=== PATIENT | male | born 1965 | race Caucasian/White ===

== ENCOUNTER 2017-01-02 12:40 | Emergency (ER) | payer MEDICARE, OTHER ==
[~2017-01-02] VITALS: Ht 172.7 cm; Wt 103.6 kg
[~2017-01-02 12:40] MED LIST: ADDE20 PO; BACT800T5 PO; BUSP15TA PO; CLIN150 PO; HIBI4LIQ TOPICAL; LAMO25 PO; NEUR100C PO; PROZ40CA PO; XANA2TAB2 PO
[2017-01-02 12:57] VITALS: BP 129/97; PULSE 81; RESP 16; TEMP 98.5; O2SAT 95
[2017-01-02 13:41] VITALS: BP 142/93; PULSE 74; RESP 18; O2SAT 98
[2017-01-02 13:57] VITALS: O2SAT 97
--- NOTE | 2017-01-02 13:59 | PD ---
HPI Chief Complaint: Chest Pain Time Seen by Provider: 13:39 Travel History International Travel<30 days: No Contact w/Intl Traveler<30days: No Traveled to known affect area: No History of Present Illness HPI 51-year-old male complains of chest pain coughing congestion swollen feet and redness of the feet. Patient states that he has history of recurrent chronic swelling of the feet and lower extremity for the past 3 months. Patient started having dry cough for the past 2 days. Patient states that he started having intermittent left-sided chest pressure for the past 2 days also. Patient states that the chest pains pressure pain localized to left chest. Patient states that the pain usually lasts about 510 minutes and resolved completely. Patient states the pain is not associated with exertion. Patient denies nausea vomiting diaphoresis with the pain. Patient denies any palpitation. Patient noticed increasing redness swelling on bilateral feet for the past 2 days also. Patient denies any fever chills. Patient denies any recent injury. Patient has history of recurrent cellulitis to lower extremity. Patient denies states that he has history of MD in the past. Patient states that he had stress test done 5 years ago. Patient does not have a local physician or dross puller for follow-up. Patient denies any history hypertension, diabetes, dyslipidemia. PFSH Past Medical History Hx Anticoagulant Therapy: No Arthritis: Yes Bipolar Disorder: Yes Anxiety: Yes Depression: Yes Cardiovascular Problems: Yes (MD x 1) Chemotherapy: No Cerebrovascular Accident: No Diabetes: No Diminished Hearing: No Gastrointestinal Disorders: No Hepatitis: Yes (HEP C) Hypertension: No Immune Disorder: Yes (HEPATITIS C) Implanted Vascular Access Dvce: No Medical other: Yes (ARTHRITIS) Musculoskeletal: Yes (r rotator cuff repair, l thumb plate/screws) Neurologic: Yes Psychiatric: Yes Respiratory: Yes (COPD) Immunizations Current: Yes Myocardial Infarction: Yes Past Surgical History Abdominal Surgery: No Cardiac Surgery: No Ear Surgery: No Endocrine Surgery: No Eye Surgery: No Genitourinary Surgery: No Gynecologic Surgery: No Hysterectomy: No Joint Replacement: No Neurologic Surgery: Yes (LUMBAR LAMINECTOMY X 2) Oral Surgery: No Thoracic Surgery: Yes Other Surgery: Yes (BACK SURGERY 2000; RIGHT SHOULDER ROTATOR CUFF 2001) Social History Alcohol Use: No Tobacco Use: Yes (1ppd) Substance Use: No Allergies-Medications (Allergen,Severity, Reaction): Coded Allergies: Geodon (Verified Allergy, Severe, "LOCK JAW", 01/02/17) Haldol (Verified Allergy, Severe, "LOCK JAW", 01/02/17) Penicillin (Verified Allergy, Severe, RASH, 01/02/17) Toradol (Verified Allergy, Severe, RASH, 01/02/17) *MDRO Multi-Drug Resistant Organism (Verified Adverse Reaction, Unknown, ) 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 Space doses at least 4 to 6 hours if more than once/day dosing. Prozac (Fluoxetine HCl) 40 Mg Cap 40 Cap PO DAILY Xanax (Alprazolam) 2 Mg Tab 1 Mg PO BID PRN Lamictal (Lamotrigine) 25 Mg Tab 25 Mg PO BID Neurontin (Gabapentin) 100 Mg Cap 500 Mg PO TID Buspirone (Buspirone HCl) 15 Mg Tab 15 Mg PO DAILY Review of Systems General / Constitutional: No: Fever Eyes: No: Visual changes HENT: No: Headaches Cardiovascular: Positive: Chest Pain or Discomfort Respiratory: No: Shortness of Breath Gastrointestinal: No: Abdominal Pain Genitourinary: No: Dysuria Musculoskeletal: Positive: Edema, No: Pain Skin: No Rash Neurologic: No: Weakness Psychiatric: No: Depression Endocrine: No: Polydipsia Hematologic/Lymphatic: No: Easy Bruising Physical Exam Narrative GENERAL: Well-nourished, well-developed patient. SKIN: Warm and dry. HEAD: Normocephalic. EYES: No scleral icterus. No injection or drainage. NECK: Supple, trachea midline. No JVD or lymphadenopathy. CARDIOVASCULAR: Regular rate and rhythm without murmurs, gallops, or rubs. RESPIRATORY: Breath sounds equal bilaterally. No accessory muscle use. GASTROINTESTINAL: Abdomen soft, non-tender, nondistended. MUSCULOSKELETAL: Patient had +2 pitting edema bilateral lower extremity. Patient has redness on the dorsum aspect of the feet bilaterally. No induration noted. BACK: Nontender without obvious deformity. No CVA tenderness. Neurologic exam normal. Data Data Last Documented VS Vital Signs Date Time Temp Pulse Resp B/P Pulse Ox O2 Delivery O2 Flow Rate FiO2 01/02/17 13:57 97 Room Air 01/02/17 13:41 74 18 142/93 01/02/17 12:57 98.5 Orders Complete Blood Count With Diff (01/02/17 13:50) Comprehensive Metabolic Panel (01/02/17 13:50) Creatine Kinase (Cpk) (01/02/17 13:50) Troponin I (01/02/17 13:50) B-Type Natriuretic Peptide (01/02/17 13:50) Prothrombin Time / Inr (Pt) (01/02/17 13:50) Act Partial Throm Time (Ptt) (01/02/17 13:50) Urinalysis - C+S If Indicated (01/02/17 13:50) Thyroid Stimulating Hormone (01/02/17 13:50) Chest, Single Ap (01/02/17 13:50) Iv Access Insert/Monitor (01/02/17 13:50) Ecg Monitoring (01/02/17 13:50) Oximetry (01/02/17 13:50) Vancomycin Inj (Vancomycin Inj) (01/02/17 14:00) Electrocardiogram (01/02/17 13:02) Labs Laboratory Tests Test 01/02/17 01/02/17 14:18 14:40 White Blood Count 8.0 TH/MM3 Red Blood Count 4.31 MIL/MM3 Hemoglobin 12.6 GM/DL Hematocrit 37.7 % Mean Corpuscular Volume 87.3 FL Mean Corpuscular Hemoglobin 29.2 PG Mean Corpuscular Hemoglobin 33.4 % Concent Red Cell Distribution Width 13.5 % Platelet Count 293 TH/MM3 Mean Platelet Volume 8.3 FL Neutrophils (%) (Auto) 69.0 % Lymphocytes (%) (Auto) 19.7 % Monocytes (%) (Auto) 5.2 % Eosinophils (%) (Auto) 0.7 % Basophils (%) (Auto) 5.4 % Neutrophils # (Auto) 5.5 TH/MM3 Lymphocytes # (Auto) 1.6 TH/MM3 Monocytes # (Auto) 0.4 TH/MM3 Eosinophils # (Auto) 0.1 TH/MM3 Basophils # (Auto) 0.4 TH/MM3 CBC Comment DIFF FINAL Differential Comment Prothrombin Time 10.0 SEC Prothromb Time International 0.9 RATIO Ratio Activated Partial 26.7 SEC Thromboplast Time Sodium Level 141 MEQ/L Potassium Level 4.6 MEQ/L Chloride Level 105 MEQ/L Carbon Dioxide Level 29.4 MEQ/L Anion Gap 7 MEQ/L Blood Urea Nitrogen 12 MG/DL Creatinine 1.10 MG/DL Estimat Glomerular Filtration 70 ML/MIN Rate Random Glucose 130 MG/DL Calcium Level 8.6 MG/DL Total Bilirubin 0.2 MG/DL Aspartate Amino Transf 14 U/L (AST/SGOT) Alanine Aminotransferase 27 U/L (ALT/SGPT) Alkaline Phosphatase 113 U/L Total Creatine Kinase 64 U/L Troponin I LESS THAN 0.02 NG/ML B-Type Natriuretic Peptide 22 PG/ML Total Protein 7.5 GM/DL Albumin 3.7 GM/DL Thyroid Stimulating Hormone 1.430 uIU/ML 3rd Gen Urine Color YELLOW Urine Turbidity CLEAR Urine pH 7.0 Urine Specific [place] 1.009 Urine Protein NEG mg/dL Urine Glucose (UA) NEG mg/dL Urine Ketones NEG mg/dL Urine Occult Blood NEG Urine Nitrite NEG Urine Bilirubin NEG Urine Leukocyte Esterase NEG Urine RBC 0-2 /hpf Urine WBC 0-2 /hpf Urine Squamous Epithelial 0-5 /hpf Cells Urine Bacteria NONE /hpf Microscopic Urinalysis Comment CULT NOT INDICATED MDM Medical Decision Making Medical Screen Exam Complete: Yes Emergency Medical Condition: Yes Interpretation(s) 15 10 PM. Last Impressions Chest X-Ray 01/02/17 1350 Signed Impressions: Service Date/Time: Monday, January 02, 2017 13:57 - CONCLUSION: No acute disease. Kaushik Orellana MD 15 10 PM. CMP within normal limit. Cardiac enzymes are normal. BNP 22. UA is negative. 1543 PM. CBC WBC 8.0. Normal differential. Differential Diagnosis Differential diagnosis including musculoskeletal, angina, MD, PE, pneumothorax, dependent edema, cellulitis, DVT. Narrative Course 51-year-old male with chest pain, coughing congestion, bilateral low extremity edema and redness. Vancomycin 1 g IV given. Patient was advised to be admitted to the chest pain center for chest pain. Patient refuses admission. Patient wants to follow-up with his local physician for that. Diagnosis Primary Impression: Cellulitis of both feet Additional Impression: Dependent edema Patient Instructions: General Instructions Additional Instructions: Take medications as directed. Keep legs elevated. Return in 2 days or recheck. Return sooner if progressively worse. Med/Other Pt SpecificInfo: Prescription(s) given Scripts Potassium Chloride ER (K-Tab)10 Meq Tab1 Tab PO DAILY #7 TAB Ref 0 Prov:Maycol Mayfield MD 01/02/17 Furosemide (Lasix)20 Mg Tab20 Mg PO DAILY #7 TAB Ref 0 Prov:Maycol Mayfield MD 01/02/17 Clindamycin 150 Mg Cap2 Tab PO Q6H #80 CAP Prov:Maycol Mayfield MD 01/02/17 Sulfamethoxazole-Trimethoprim (Bactrim DS)800-160 Mg Tab1 Tab PO BID #20 TAB Prov:Maycol Mayfield MD 01/02/17 Disposition: 01 DISCHARGE HOME Condition: Stable Maycol Mayfield MD Jan 02, 2017 13:59
[2017-01-02] MEDS ORDERED: VANCOMYCIN INJ 1,000 MG in SODIUM CHLOR 0.9% 250 ML INJ 250 ML IV ONE (14:00)
--- NOTE | 2017-01-02 14:29 | RADHPO ---
EXAM DATE/TIME: 01/02/2017 13:57 [facility] COMPARISON: CHEST SINGLE AP, June 13, 2016, 7:04. INDICATIONS : Chest pain. MEDICAL HISTORY : Myocardial infarction. SURGICAL HISTORY : None. ENCOUNTER: Initial ACUITY: 3 days PAIN SCORE: 4/10 LOCATION: Right middle chest FINDINGS: A single view of the chest demonstrates the lungs to be symmetrically aerated without evidence of mas s, infiltrate or effusion. The cardiomediastinal contours are unremarkable. Osseous structures are intact. There are overlying electrocardiogram leads. CONCLUSION: No acute disease. Kaushik Orellana MD on January 02, 2017 at 14:27 Board Certified Radiologist. This report was verified electronically.
[2017-01-02 14:40] LABS: CHLORIDE 105 MEQ/L (98-107); POTASSIUM 4.6 MEQ/L (3.5-5.1); SODIUM (NA) 141 MEQ/L (136-145)
[2017-01-02 14:44] LABS: ANION GAP 7 MEQ/L (5-15); APTT (PATIENT) 26.7 SEC (24.3-30.1); BICARBONATE 29.4 MEQ/L (21.0-32.0); BLOOD UREA NITROGEN 12 MG/DL (7-18); INTERNATIONAL NORMALIZED RATIO 0.9 RATIO
[2017-01-02 14:47] LABS: ALT (GPT) 27 U/L (12-78); AST (GOT) 14 U/L (15-37); GLOMERULAR FILTRATION RATE 70 ML/MIN (>89)
[2017-01-02 14:48] LABS: TOTAL BILIRUBIN ADULT 0.2 MG/DL (0.2-1.0)
[2017-01-02 14:50] LABS: ALKALINE PHOSPHATASE 113 U/L (45-117)
[2017-01-02 14:57] LABS: CREATINE KINASE 64 U/L (39-308)
[2017-01-02 14:59] LABS: BLOOD, URINE NEG (NEG); GLUCOSE,URINE NEG (NEG); KETONE, URINE NEG (NEG); NITRITE,URINE NEG (NEG)
[2017-01-02 15:04] LABS: URINE COLOR YELLOW (YELLW/STRAW)
[2017-01-02 15:05] LABS: COMMENT (UR) CULT NOT INDICATED; CULTURE IF INDICATED CULT NOT INDICATED; RBC, URINE 0-2 /hpf (0-3); SQUAMOUS EPITHELIAL CELL URINE 0-5 /hpf (0-5); WBC, URINE 0-2 /hpf (0-5)
[2017-01-02 15:30] LABS: AUTOMATED NEUTROPHIL # 5.5 TH/MM3 (1.8-7.7); BASOPHIL # 0.4 TH/MM3 (0-0.2); BASOPHIL % 5.4 % (0.0-2.0); EOSINOPHIL # 0.1 TH/MM3 (0-0.4); EOSINOPHIL % 0.7 % (0.0-4.0); HEMATOCRIT 37.7 % (39.0-51.0); LYMPH % 19.7 % (9.0-44.0); LYMPHOCYTE # 1.6 TH/MM3 (1.0-4.8); MEAN CELL VOLUME 87.3 FL (80.0-100.0); MEAN CORPUSCULAR HEMOGLOBIN 29.2 PG (27.0-34.0); MEAN CORPUSCULAR HGB CONC 33.4 % (32.0-36.0); MONO % 5.2 % (0.0-8.0); PLATELET COUNT 293 TH/MM3 (150-450); RED BLOOD COUNT 4.31 MIL/MM3 (4.50-5.90); RED CELL DISTRIBUTION WIDTH 13.5 % (11.6-17.2)
[2017-01-02 15:34] LABS: HEMO FLAGS DIFF FINAL
[2017-01-02] MEDS ORDERED: FURO1TAB62 PO (15:51)
[2017-01-02] MEDS ORDERED: CLIN1CAP5 PO (15:51)
[2017-01-02] MEDS ORDERED: BACT800T5 PO (15:51)
[2017-01-02] MEDS ORDERED: K-TA10TA PO (15:51)
[2017-01-02 16:48] VITALS: BP 132/84
--- NOTE | 2017-01-03 11:27 | EKG ---
Date Performed: 01/02/2017 Time Performed: 13:02:18 PTAGE: 51 years EKG: Sinus rhythm QT interval slightly shorter since the prior tracing. Borderline ECG PREVIOUS TRACING : 06/13/2016 07.07 DOCTOR: Topher Loera Interpretating Date/Time 01/03/2017 11:26:24
== END 2017-01-02 17:02 | disposition home or self-care (01) ==
LOC: PHED 12:40
DX: L03.116 Cellulitis of left lower limb (principal); L03.115 Cellulitis of right lower limb; R60.0 Localized edema; R94.31 Abnormal electrocardiogram [ECG] [EKG]; R07.89 Other chest pain; R05 Cough; F17.200 Nicotine dependence, unspecified, uncomplicated; I25.2 Old myocardial infarction; Z87.39 Personal history of other diseases of the musculoskeletal system and connective tissue; Z86.79 Personal history of other diseases of the circulatory system; Z86.19 Personal history of other infectious and parasitic diseases; Z86.69 Personal history of other diseases of the nervous system and sense organs; Z87.09 Personal history of other diseases of the respiratory system; Z86.59 Personal history of other mental and behavioral disorders
CPT/HCPCS: 71010; 80053; 81001; 82550; 83880; 84443; 84484; 85025; 85610; 85730; 93005; 96365; 99285; J3370; J7050

== ENCOUNTER 2017-02-17 13:18 | Emergency (ER) | payer MEDICARE, OTHER ==
[~2017-02-17] VITALS: Ht 167.6 cm; Wt 101.1 kg
[~2017-02-17 13:18] MED LIST changes: -CLIN150 PO; +CLIN1CAP5 PO; +FURO1TAB62 PO; -HIBI4LIQ TOPICAL; +K-TA10TA PO
[2017-02-17 13:30] VITALS: BP 113/70; PULSE 81; RESP 16; TEMP 98.5; O2SAT 97
[2017-02-17] MEDS ORDERED: CLIN1CAP6 PO (14:22)
[2017-02-17] MEDS ORDERED: HYDR25TA5 PO (14:22)
--- NOTE | 2017-02-17 14:22 | PD ---
HPI Chief Complaint: Edema Time Seen by Provider: 14:12 Travel History International Travel<30 days: No Contact w/Intl Traveler<30days: No Traveled to known affect area: No History of Present Illness HPI 51-year-old male here with complaint of swelling and pain to the legs. Patient has noticed 3 days of progressively worsening bilateral lower extremity redness and swelling. History of recurrent lower extremity cellulitis. Chronically swollen lower extremities most prominent over the last 3 days. No history of DVT, PE. No fevers or chills. He has not noticed any streaking erythema. PFSH Past Medical History Hx Anticoagulant Therapy: No Arthritis: Yes Bipolar Disorder: Yes Anxiety: Yes Depression: Yes Cardiovascular Problems: Yes ([place] x 1) Chemotherapy: No Cerebrovascular Accident: No Diabetes: No Diminished Hearing: No Gastrointestinal Disorders: No Hepatitis: Yes (HEP C) Hypertension: No Immune Disorder: Yes (HEPATITIS C) Implanted Vascular Access Dvce: No Medical other: Yes (ARTHRITIS) Musculoskeletal: Yes (r rotator cuff repair, l thumb plate/screws) Neurologic: Yes Psychiatric: Yes Respiratory: Yes (COPD) Immunizations Current: Yes Myocardial Infarction: Yes Tetanus Vaccination: < 5 Years Influenza Vaccination: No Past Surgical History Abdominal Surgery: No Cardiac Surgery: No Ear Surgery: No Endocrine Surgery: No Eye Surgery: No Genitourinary Surgery: No Gynecologic Surgery: No Hysterectomy: No Joint Replacement: No Neurologic Surgery: Yes (LUMBAR LAMINECTOMY X 2) Oral Surgery: No Thoracic Surgery: Yes Other Surgery: Yes (BACK SURGERY 2000; RIGHT SHOULDER ROTATOR CUFF 2001) Social History Alcohol Use: No Tobacco Use: Yes (1ppd) Substance Use: No Allergies-Medications (Allergen,Severity, Reaction): Coded Allergies: Geodon (Verified Allergy, Severe, "LOCK JAW", 02/17/17) Haldol (Verified Allergy, Severe, "LOCK JAW", 02/17/17) Penicillin (Verified Allergy, Severe, RASH, 02/17/17) Toradol (Verified Allergy, Severe, RASH, 02/17/17) *MDRO Multi-Drug Resistant Organism (Verified Adverse Reaction, Unknown, ) 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 Space doses at least 4 to 6 hours if more than once/day dosing. Prozac (Fluoxetine HCl) 40 Mg Cap 40 Cap PO DAILY Xanax (Alprazolam) 2 Mg Tab 1 Mg PO BID PRN Lamictal (Lamotrigine) 25 Mg Tab 25 Mg PO BID Neurontin (Gabapentin) 100 Mg Cap 500 Mg PO TID Buspirone (Buspirone HCl) 15 Mg Tab 15 Mg PO DAILY Review of Systems Except as stated in HPI: all other systems reviewed are Neg Physical Exam Narrative GENERAL: Well-appearing male in no acute distress SKIN: Focused skin assessment warm/dry. HEAD: Normocephalic. EYES: No scleral icterus. No injection or drainage. ENT: Mucous membranes pink and moist. NECK: Supple CARDIOVASCULAR: Regular rate and rhythm. RESPIRATORY: No accessory muscle use. MUSCULOSKELETAL: Erythema and minimal warmth of the feet and lower calves. No palpable cords. 5 out of 5 strength. 2+ BLE edema in the affected area. Distal sensation and pulses intact NEUROLOGICAL: Awake and alert. Normal speech. PSYCHIATRIC: Appropriate mood and affect; insight and judgment normal. Data Data Last Documented VS Vital Signs Date Time Temp Pulse Resp B/P Pulse Ox O2 Delivery O2 Flow Rate FiO2 02/17/17 13:30 98.5 81 16 113/70 97 MDM Medical Decision Making Medical Screen Exam Complete: Yes Emergency Medical Condition: Yes Medical Record Reviewed: Yes Differential Diagnosis 51-year-old male here with complaint of redness and swelling to the bilateral legs. Exam is consistent with early cellulitis. No open wounds to suggest ulcer, exam is not consistent with necrotizing fasciitis. Given the bilaterality my suspicion for DVT is exceedingly low. Narrative Course Patient will be treated with antibiotics and diuretics for home. Diagnosis Primary Impression: Bilateral lower leg cellulitis Referrals: Primary Care Physician 1 week Additional Instructions: Antibiotics as prescribed. Diuretics to help with fluid. Elevate the legs as much as possible. Follow-up with primary care provider as instructed. Med/Other Pt SpecificInfo: Prescription(s) given Scripts Hydrochlorothiazide 25 Mg Tab25 Mg PO DAILY 7 Days Ref 0 Prov:Jamila Castro MD 02/17/17 Clindamycin 300 Mg Qmr644 Mg PO TID 7 Days Ref 0 Prov:Jamila Castro MD 02/17/17 Disposition: 01 DISCHARGE HOME Condition: Stable Jamila Castro MD Feb 17, 2017 14:22
== END 2017-02-17 14:36 | disposition home or self-care (01) ==
LOC: PHEFT 13:18
DX: L03.115 Cellulitis of right lower limb (principal); L03.116 Cellulitis of left lower limb; M19.90 Unspecified osteoarthritis, unspecified site
CPT/HCPCS: 99283

== ENCOUNTER 2017-09-10 15:34 | Emergency (ER) | payer MEDICARE, OTHER ==
[~2017-09-10] VITALS: Ht 172.7 cm; Wt 101.0 kg
[~2017-09-10 15:34] MED LIST changes: -ADDE20 PO; -BACT800T5 PO; -CLIN1CAP5 PO; +CLIN1CAP6 PO; -FURO1TAB62 PO; +HYDR25TA5 PO; -K-TA10TA PO
[2017-09-10 15:38] VITALS: BP 123/68; PULSE 76; RESP 18; TEMP 98.3; O2SAT 96
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
[2017-09-10] MEDS ORDERED: ROBA500T PO (17:54)
== END 2017-09-10 18:03 | disposition home or self-care (01) ==
LOC: PHEFT 15:34
DX: S13.4XXA Sprain of ligaments of cervical spine, initial encounter (principal); M62.838 Other muscle spasm; M54.12 Radiculopathy, cervical region; V49.9XXA Car occupant (driver) (passenger) injured in unspecified traffic accident, initial encounter; Y92.415 Exit ramp or entrance ramp of street or highway as the place of occurrence of the external cause
CPT/HCPCS: 70450; 72125

== ENCOUNTER 2017-11-28 10:58 | Emergency (ER) | payer MEDICARE, OTHER ==
[~2017-11-28] VITALS: Ht 172.7 cm; Wt 99.7 kg
[~2017-11-28 10:58] MED LIST changes: -CLIN1CAP6 PO; +ROBA500T PO
[2017-11-28 11:00] VITALS: BP 133/64; PULSE 82; RESP 18; TEMP 97.9; O2SAT 97
[2017-11-28] MEDS ORDERED: ADDE20 PO (11:34)
[2017-11-28 11:47] LABS: AUTOMATED NEUTROPHIL # 2.7 TH/MM3 (1.8-7.7); BASOPHIL % 0.7 % (0.0-2.0); EOSINOPHIL # 0.2 TH/MM3 (0-0.4); EOSINOPHIL % 4.1 % (0.0-4.0); HEMATOCRIT 30.3 % (39.0-51.0); HEMOGLOBIN 9.8 GM/DL (13.0-17.0); LYMPH % 26.3 % (9.0-44.0); LYMPHOCYTE # 1.2 TH/MM3 (1.0-4.8); MEAN CELL VOLUME 87.4 FL (80.0-100.0); MEAN CORPUSCULAR HEMOGLOBIN 28.2 PG (27.0-34.0); MEAN CORPUSCULAR HGB CONC 32.3 % (32.0-36.0); MONO % 7.5 % (0.0-8.0); MONOCYTE # 0.3 TH/MM3 (0-0.9); NEUT % 61.4 % (16.0-70.0); PLATELET COUNT 229 TH/MM3 (150-450); RED BLOOD COUNT 3.47 MIL/MM3 (4.50-5.90); RED CELL DISTRIBUTION WIDTH 14.3 % (11.6-17.2); WHITE BLOOD COUNT 4.4 TH/MM3 (4.0-11.0)
[2017-11-28 12:00] LABS: CREATININE 0.85 MG/DL (0.60-1.30)
--- NOTE | 2017-11-28 12:05 | RADRPT ---
EXAM DATE/TIME: 11/28/2017 11:50 [facility] COMPARISON: No previous studies available for comparison. INDICATIONS : Short of breath. MEDICAL HISTORY : Chronic obstructive pulmonary disease. Hepatitis C. SURGICAL HISTORY : rt shoulder ENCOUNTER: Initial ACUITY: 1 week PAIN SCORE: 0/10 LOCATION: Bilateral chest FINDINGS: A single view of the chest demonstrates the lungs to be symmetrically aerated without evidence of mas s, infiltrate or effusion. The cardiomediastinal contours are unremarkable. Osseous structures are intact. CONCLUSION: No acute disease. Ja Edmonds MD on November 28, 2017 at 12:04 Board Certified Radiologist. This report was verified electronically.
--- NOTE | 2017-11-28 12:07 | RADRPT ---
EXAM DATE/TIME: 11/28/2017 11:50 [facility] COMPARISON: No previous studies available for comparison. INDICATIONS : Right shoulder pain, no known injury. MEDICAL HISTORY : Chronic obstructive pulmonary disease. Hepatitis C. SURGICAL HISTORY : rt shoulder ENCOUNTER: Initial ACUITY: 1 week PAIN SCORE: 8/10 LOCATION: Right shoulder FINDINGS: Multiple view examination of the right shoulder demonstrates no evidence of fracture or dislocation. The glenohumeral and acromioclavicular joints are maintained. There is normal range of motion betwe en internal and external rotation. Bony mineralization is normal. CONCLUSION: 1. No acute findings. Ja Edmonds MD on November 28, 2017 at 12:04 Board Certified Radiologist. This report was verified electronically.
--- NOTE | 2017-11-28 12:08 | PD ---
HPI Chief Complaint: Edema Time Seen by Provider: 11:22 Travel History International Travel<30 days: No Contact w/Intl Traveler<30days: No Traveled to known affect area: No History of Present Illness HPI 52-year-old male patient with history of chronic leg edema, previous right rotator cuff repair, presents to the ER today for several weeks' history of increased bilateral leg swelling, increased pain in the right shoulder over the last week, denies any known injuries. He denies any fevers, chest pains, shortness of breath, or any other symptoms. He apparently had been on diuretics in the past but has not been on it for at least 4 months. He states he does not have a primary care doctor. He states the pain in the right shoulder is a 10 out 10, worsens with movements. Modifying Factors: None Associated Signs & Symptoms: Right shoulder pains, bilateral leg swelling Risk Factors: History of shoulder rotator cuff repair, chronic leg edema PFSH Past Medical History Hx Anticoagulant Therapy: No Arthritis: Yes Bipolar Disorder: Yes Anxiety: Yes Depression: Yes Cardiovascular Problems: Yes Chemotherapy: No Cerebrovascular Accident: No Diabetes: No Diminished Hearing: No Gastrointestinal Disorders: No Hepatitis: Yes (HEP C) Hypertension: No Immune Disorder: Yes (HEPATITIS C) Implanted Vascular Access Dvce: No Medical other: Yes (ARTHRITIS) Musculoskeletal: Yes (r rotator cuff repair, l thumb plate/screws) Neurologic: Yes Psychiatric: Yes Respiratory: Yes (COPD) Immunizations Current: Yes Myocardial Infarction: Yes Tetanus Vaccination: > 5 Years Influenza Vaccination: Yes Past Surgical History Abdominal Surgery: No Cardiac Surgery: No Ear Surgery: No Endocrine Surgery: No Eye Surgery: No Genitourinary Surgery: No Gynecologic Surgery: No Hysterectomy: No Joint Replacement: No Neurologic Surgery: Yes (LUMBAR LAMINECTOMY X 2) Oral Surgery: No Thoracic Surgery: Yes Other Surgery: Yes (BACK SURGERY 2000; RIGHT SHOULDER ROTATOR CUFF 2001) Social History Alcohol Use: No Tobacco Use: Yes (1ppd) Substance Use: No Allergies-Medications (Allergen,Severity, Reaction): Coded Allergies: haloperidol (Unverified Allergy, Severe, "LOCK JAW", 11/28/17) ketorolac (Unverified Allergy, Severe, RASH, 11/28/17) penicillin G (Unverified Allergy, Severe, RASH, 11/28/17) ziprasidone (Unverified Allergy, Severe, "LOCK JAW", 11/28/17) *MDRO Multi-Drug Resistant Organism (Verified Adverse Reaction, Unknown, ) 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 Space doses at least 4 to 6 hours if more than once/day dosing. Prozac (Fluoxetine HCl) 40 Mg Cap 40 Cap PO DAILY Lamictal (Lamotrigine) 25 Mg Tab 25 Mg PO BID Neurontin (Gabapentin) 100 Mg Cap 500 Mg PO TID Review of Systems Except as stated in HPI: all other systems reviewed are Neg Physical Exam Narrative GENERAL: Well-developed middle age white male patient currently in mild distress. Awake and oriented 3. SKIN: Focused skin assessment warm/dry. HEAD: Atraumatic. Normocephalic. EYES: Pupils equal and round. No scleral icterus. No injection or drainage. ENT: No nasal bleeding or discharge. Mucous membranes pink and moist. NECK: Trachea midline. No JVD. Supple. CARDIOVASCULAR: Regular rate and rhythm. No murmur appreciated. RESPIRATORY: No accessory muscle use. Clear to auscultation. Breath sounds equal bilaterally. GASTROINTESTINAL: Abdomen soft, non-tender, nondistended. Hepatic and splenic margins not palpable. EXTREMITIES: No clubbing, cyanosis. Bilateral pitting edema both legs. No cough tenderness or erythema. There is tenderness to palpation of the right shoulder decreased range of motion in the area to pain. No palpable deformities. Neurovascularly intact. NEUROLOGICAL: Awake and alert. No obvious cranial nerve deficits. Motor grossly within normal limits. Normal speech. PSYCHIATRIC: Appropriate mood and affect; insight and judgment normal. Data Data Last Documented VS Vital Signs Date Time Temp Pulse Resp B/P (MAP) Pulse Ox O2 Delivery O2 Flow Rate FiO2 11/28/17 11:28 Room Air 11/28/17 11:00 97.9 82 18 133/64 (87) 97 Orders Orders Complete Blood Count With Diff (11/28/17 11:22) Basic Metabolic Panel (Bmp) (11/28/17 11:22) Chest, Single Ap (11/28/17 11:22) Shoulder, Complete (>2vws) (11/28/17 11:22) B-Type Natriuretic Peptide (11/28/17 11:22) Potassium Chloride (Kcl) (11/28/17 12:15) Labs Laboratory Tests Test 11/28/17 11:40 White Blood Count 4.4 TH/MM3 Red Blood Count 3.47 MIL/MM3 Hemoglobin 9.8 GM/DL Hematocrit 30.3 % Mean Corpuscular Volume 87.4 FL Mean Corpuscular Hemoglobin 28.2 PG Mean Corpuscular Hemoglobin Concent 32.3 % Red Cell Distribution Width 14.3 % Platelet Count 229 TH/MM3 Mean Platelet Volume 8.0 FL Neutrophils (%) (Auto) 61.4 % Lymphocytes (%) (Auto) 26.3 % Monocytes (%) (Auto) 7.5 % Eosinophils (%) (Auto) 4.1 % Basophils (%) (Auto) 0.7 % Neutrophils # (Auto) 2.7 TH/MM3 Lymphocytes # (Auto) 1.2 TH/MM3 Monocytes # (Auto) 0.3 TH/MM3 Eosinophils # (Auto) 0.2 TH/MM3 Basophils # (Auto) 0.0 TH/MM3 CBC Comment DIFF FINAL Differential Comment Blood Urea Nitrogen 8 MG/DL Creatinine 0.85 MG/DL Random Glucose 143 MG/DL Calcium Level 8.0 MG/DL Sodium Level 143 MEQ/L Potassium Level 3.0 MEQ/L Chloride Level 108 MEQ/L Carbon Dioxide Level 30.0 MEQ/L Anion Gap 5 MEQ/L Estimat Glomerular Filtration Rate 94 ML/MIN B-Type Natriuretic Peptide 72 PG/ML MDM Medical Decision Making Medical Screen Exam Complete: Yes Emergency Medical Condition: Yes Medical Record Reviewed: Yes Interpretation(s) Laboratory Tests Test 11/28/17 11:40 Red Blood Count 3.47 MIL/MM3 (4.50-5.90) Hemoglobin 9.8 GM/DL (13.0-17.0) Hematocrit 30.3 % (39.0-51.0) Eosinophils (%) (Auto) 4.1 % (0.0-4.0) Random Glucose 143 MG/DL (74-106) Calcium Level 8.0 MG/DL (8.5-10.1) Potassium Level 3.0 MEQ/L (3.5-5.1) Chloride Level 108 MEQ/L (98-107) Last 24 hours Impressions Shoulder X-Ray 11/28/17 1122 Signed Impressions: Service Date/Time: Tuesday, November 28, 2017 11:50 - CONCLUSION: 1. No acute findings. Ja Edmonds MD Chest X-Ray 11/28/17 1122 Signed Impressions: Service Date/Time: Tuesday, November 28, 2017 11:50 - CONCLUSION: No acute disease. Ja Edmonds MD Differential Diagnosis Shoulder strain versus arthritis versus acute fractures, Dependent edema of the legs versus cellulitis versus CHF Narrative Course X-ray of the shoulder and chest did not reveal any signs of acute processes. Symptoms would indicate underlying strain. Patient denies any IV drug use or injections. Considering previous history of shoulder cuff repair, I suspect an underlying chronic process. Leg swelling is likely to be due to dependent edema. He has been noncompliant with his diuretics. I do not see any obvious signs of cellulitis. Chest x-ray did not show any signs of CHF and BNP is otherwise unremarkable. He does have a low potassium and potassium was given in the ER. At this point, my plan would be to release him with symptomatic relief or pain, diuretic, and follow-up with primary care doctor. We will also keep him on potassium especially with diuretic use. Return for any worsening in symptoms as necessary. The plan has been discussed with him and he states understanding. Diagnosis Primary Impression: Dependent edema Additional Impression: Right shoulder strain Referrals: [facility] Patient Instructions: General Instructions Med/Other Pt SpecificInfo: Prescription(s) given Scripts Potassium Chloride ER (K-Tab) 20 Meq Tab 20 MEQ PO DAILY for Electrolyte Replacement, #7 TAB 0 Refills Prov: Angie Blair MD 11/28/17 Hydrochlorothiazide (Hydrochlorothiazide) 25 Mg Tab 25 MG PO DAILY for 7 Days, TAB 0 Refills Prov: Angie Blair MD 11/28/17 Methocarbamol (Robaxin) 500 Mg Tab 500 MG PO TID for Muscle Spasm for 5 Days, TAB 0 Refills Prov: Angie Blair MD 11/28/17 Disposition: 01 DISCHARGE HOME Condition: Stable Angie Blair MD Nov 28, 2017 12:08
[2017-11-28] MEDS ORDERED: POTASSIUM CHLORIDE 10 MEQ CONTROLLED RELEASE TAB PO ONE (12:15)
[2017-11-28] MEDS ORDERED: ROBA500T PO (12:49)
[2017-11-28] MEDS ORDERED: HYDR25TA5 PO (12:50)
[2017-11-28] MEDS ORDERED: POTA1TAB4 PO (12:50)
[2017-11-28 13:02] VITALS: BP 119/75; PULSE 78; RESP 16; O2SAT 96
[2017-11-28] MEDS ORDERED: METHOCARBAMOL 500 MG TAB PO ONE (13:15)
== END 2017-11-28 14:36 | disposition home or self-care (01) ==
LOC: PHED 10:58 → PHEFT 14:36
DX: R60.0 Localized edema (principal); S46.911A Strain of unspecified muscle, fascia and tendon at shoulder and upper arm level, right arm, initial encounter; E87.6 Hypokalemia; F31.9 Bipolar disorder, unspecified; F41.8 Other specified anxiety disorders; I25.2 Old myocardial infarction; F17.200 Nicotine dependence, unspecified, uncomplicated; X58.XXXA Exposure to other specified factors, initial encounter; Z87.39 Personal history of other diseases of the musculoskeletal system and connective tissue; Z86.79 Personal history of other diseases of the circulatory system; Z86.69 Personal history of other diseases of the nervous system and sense organs; Z87.09 Personal history of other diseases of the respiratory system
CPT/HCPCS: 71045; 73030; 80048; 83880; 85025; 99284

== ENCOUNTER 2017-12-02 14:22 | Emergency (ER) | payer MEDICARE, MEDICAID ==
[~2017-12-02] VITALS: Ht 170.2 cm; Wt 91.6 kg
[~2017-12-02 14:22] MED LIST changes: +ADDE20 PO; -BUSP15TA PO; +POTA1TAB4 PO; -XANA2TAB2 PO
[2017-12-02 14:26] VITALS: BP 144/83; PULSE 87; RESP 18; TEMP 97.8; O2SAT 98
[2017-12-02] MEDS ORDERED: BUSP15TA PO (14:49)
[2017-12-02] MEDS ORDERED: DICYCLOMINE HCL 20 MG/2 ML VIAL IM ONE (15:00)
--- NOTE | 2017-12-02 15:05 | PD ---
HPI Chief Complaint: Abdominal Pain Time Seen by Provider: 15:11 Travel History International Travel<30 days: No Contact w/Intl Traveler<30days: No Traveled to known affect area: No History of Present Illness HPI c/o diffuse abdominal pain, crampy, 05/29, nonrad assoc factors of n/v/d present but not fever/delcid/cp/. no alleviating/aggravating factors pmhx:hiatal hernia, gerd, multiple shoulder surgery and back surgery with chronic back pain PFSH Past Medical History Hx Anticoagulant Therapy: No Arthritis: Yes Bipolar Disorder: Yes Anxiety: Yes Depression: Yes Cardiovascular Problems: Yes Chemotherapy: No Cerebrovascular Accident: No Diabetes: No Diminished Hearing: No Gastrointestinal Disorders: No Hepatitis: Yes (HEP C) Hypertension: No Immune Disorder: Yes (HEPATITIS C) Implanted Vascular Access Dvce: No Medical other: Yes (ARTHRITIS) Musculoskeletal: Yes (r rotator cuff repair, l thumb plate/screws) Neurologic: Yes Psychiatric: Yes Respiratory: Yes (COPD) Immunizations Current: Yes Myocardial Infarction: Yes Past Surgical History Abdominal Surgery: No Cardiac Surgery: No Ear Surgery: No Endocrine Surgery: No Eye Surgery: No Genitourinary Surgery: No Gynecologic Surgery: No Hysterectomy: No Joint Replacement: No Neurologic Surgery: Yes (LUMBAR LAMINECTOMY X 2) Oral Surgery: No Thoracic Surgery: Yes Other Surgery: Yes (BACK SURGERY 2000; RIGHT SHOULDER ROTATOR CUFF 2001) Social History Alcohol Use: No Tobacco Use: Yes (1ppd) Substance Use: No Allergies-Medications (Allergen,Severity, Reaction): Coded Allergies: haloperidol (Unverified Allergy, Severe, "LOCK JAW", 12/02/17) ketorolac (Unverified Allergy, Severe, RASH, 12/02/17) penicillin G (Unverified Allergy, Severe, RASH, 12/02/17) ziprasidone (Unverified Allergy, Severe, "LOCK JAW", 12/02/17) *MDRO Multi-Drug Resistant Organism (Verified Adverse Reaction, Unknown, ) 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) Reported Meds & Prescriptions Reported Meds & Active Scripts Active Reported Buspirone (Buspirone HCl) 15 Mg Tab 15 Mg PO DAILY Lamictal (Lamotrigine) 25 Mg Tab 25 Mg PO BID Review of Systems General / Constitutional: No: Fever Eyes: No: Visual changes HENT: No: Headaches Cardiovascular: No: Chest Pain or Discomfort Respiratory: No: Shortness of Breath Gastrointestinal: Positive: Nausea, Vomiting, Diarrhea, Abdominal Pain Genitourinary: No: Dysuria Musculoskeletal: No: Pain Skin: No Rash Neurologic: No: Weakness Psychiatric: No: Depression Endocrine: No: Polydipsia Hematologic/Lymphatic: No: Easy Bruising Physical Exam Narrative GENERAL: SKIN: Warm and dry. HEAD: Atraumatic. Normocephalic. EYES: Pupils equal and round. No scleral icterus. No injection or drainage. ENT: No nasal bleeding or discharge. Mucous membranes pink and moist. NECK: Trachea midline. No JVD. CARDIOVASCULAR: Regular rate and rhythm. RESPIRATORY: No accessory muscle use. Clear to auscultation. Breath sounds equal bilaterally. GASTROINTESTINAL: Abdomen soft, non-tender, nondistended. hyperactive bowel sounds MUSCULOSKELETAL: Extremities without clubbing, cyanosis, or edema. No obvious deformities. NEUROLOGICAL: Awake and alert. No obvious cranial nerve deficits. Motor grossly within normal limits. Five out of 5 muscle strength in the arms and legs. Normal speech. PSYCHIATRIC: Appropriate mood and affect; insight and judgment normal. Data Data Last Documented VS Vital Signs Date Time Temp Pulse Resp B/P (MAP) Pulse Ox O2 Delivery O2 Flow Rate FiO2 12/02/17 14:26 97.8 87 18 144/83 (103) [address] Abd/Pel W/O Iv Contrast (12/02/17 14:55) Dicyclomine Inj (Bentyl Inj) (12/02/17 15:00) Urinalysis - C+S If Indicated (12/02/17 15:05) Ondansetron Odt (Zofran Odt) (12/02/17 15:15) Labs Laboratory Tests Test 12/02/17 15:10 Urine Collection Type CLEAN CATCH Urine Color YELLOW Urine Turbidity CLEAR Urine pH 8.0 Urine Specific [place] 1.012 Urine Protein NEG mg/dL Urine Glucose (UA) NEG mg/dL Urine Ketones NEG mg/dL Urine Occult Blood NEG Urine Nitrite NEG Urine Bilirubin NEG Urine Leukocyte Esterase NEG Urine RBC 0-3 /hpf Urine WBC 0-2 /hpf Urine Squamous Epithelial Cells 6-8 /hpf Microscopic Urinalysis Comment CULT NOT INDICATED Urine Collection Time 15:10 [facility] Medical Decision Making Medical Screen Exam Complete: Yes Emergency Medical Condition: Yes Medical Record Reviewed: Yes Differential Diagnosis gastroenteritis v pancreatitis v colitis v divertic Narrative Course ct c/w gastroenteritis, no surgical findings, ua neg for uti. patient pain decreased and po tolerated after zofran. Diagnosis Primary Impression: gastroenteritis Patient Instructions: Gastroenteritis (ED), General Instructions Scripts Ondansetron Odt (Zofran Odt) 4 Mg Tab 4 MG SL Q6HR Y for Nausea/Vomiting, #30 TAB 0 Refills Prov: Brandyn Taylor MD 12/02/17 Dicyclomine (Bentyl) 10 Mg Cap 10 MG PO QID for Bowel Management, #21 CAP 0 Refills Prov: Brandyn Taylor MD 12/02/17 Disposition: 01 DISCHARGE HOME Condition: Stable Brandyn Taylor MD Dec 02, 2017 15:05
[2017-12-02] MEDS ORDERED: ONDANSETRON ODT 4 MG TAB PO ONE ×2 (15:15→16:00)
[2017-12-02 15:19] LABS: BILIRUBIN, URINE NEG (NEG); BLOOD, URINE NEG (NEG); GLUCOSE,URINE NEG (NEG); KETONE, URINE NEG (NEG); NITRITE,URINE NEG (NEG); URINE LEUKOCYTE ESTERASE NEG (NEG)
[2017-12-02 15:26] LABS: URINE COLOR YELLOW (YELLW/STRAW)
[2017-12-02 15:27] LABS: RBC, URINE 0-3 /hpf (0-3); WBC, URINE 0-2 /hpf (0-5)
--- NOTE | 2017-12-02 15:27 | RADRPT ---
EXAM DATE/TIME: 12/02/2017 15:06 [facility] COMPARISON: No previous studies available for comparison. INDICATIONS : Abdominal pain, nausea, vomiting. ORAL CONTRAST: No oral contrast ingested. RADIATION DOSE: 22.56 CTDIvol (mGy) MEDICAL HISTORY : Cardiovascular disease. Chronic obstructive pulmonary disease. Hep C SURGICAL HISTORY : Lumbar laminectomy, rotator cuff. ENCOUNTER: Initial ACUITY: 2 days PAIN SCALE: 8/10 LOCATION: middle abdominal TECHNIQUE: Volumetric scanning of the abdomen and pelvis was performed. Using automated exposure control and ad justment of the mA and/or kV according to patient size, radiation dose was kept as low as reasonably achievable to obtain optimal diagnostic quality images. DICOM format image data is available electro nically for review and comparison. FINDINGS: LOWER LUNGS: The visualized lower lungs are clear. LIVER: Homogeneous density without lesion. There is no dilation of the biliary tree. No calcified gallston es. SPLEEN: Normal size without lesion. PANCREAS: Within normal limits. KIDNEYS: Normal in size and shape. There is no mass, stone, or hydronephrosis. ADRENAL GLANDS: There is a 2.6 cm low-attenuation left adrenal adenoma. The right adrenal gland is unremarkable. VASCULAR: There is no aortic aneurysm. BOWEL/MESENTERY: No oral contrast was given to the exam. The stomach is unremarkable in appearance. There are multiple loops of nondilated air-containing small bowel several small air-fluid levels. The colon appears unr emarkable with mild to moderate amount of stool. There is no definite wall thickening or inflammatory change.. There is no free intraperitoneal air or fluid. ABDOMINAL WALL: Within normal limits. RETROPERITONEUM: There is no lymphadenopathy. BLADDER: No wall thickening or mass. REPRODUCTIVE: Within normal limits. INGUINAL: There is no lymphadenopathy or hernia. MUSCULOSKELETAL: Within normal limits for patient age. CONCLUSION: 1. Low density left adrenal adenoma. 2. Unremarkable gallbladder. 3. Nonspecific, nonobstructive bowel gas pattern which may represent gastroenteritis and/or ileus. Kaushik Orellana MD on December 02, 2017 at 15:22 Board Certified Radiologist. This report was verified electronically.
[2017-12-02] MEDS ORDERED: ZOFR4TAB3 SL (15:39)
[2017-12-02] MEDS ORDERED: DICY10 PO (15:39)
[2017-12-02 16:02] VITALS: BP 132/91; PULSE 80; RESP 16; O2SAT 97
== END 2017-12-02 16:11 | disposition home or self-care (01) ==
LOC: PHED 14:22
DX: K52.9 Noninfective gastroenteritis and colitis, unspecified (principal); F31.9 Bipolar disorder, unspecified; J44.9 Chronic obstructive pulmonary disease, unspecified; F17.200 Nicotine dependence, unspecified, uncomplicated
CPT/HCPCS: 74176; 81001; 96372; 99285; J0500

== ENCOUNTER 2018-05-01 19:47 | Observation (INO) | payer MEDICARE, MEDICAID ==
[~2018-05-01 19:47] MED LIST changes: -ADDE20 PO; +BUSP15TA PO; +DICY10 PO; -HYDR25TA5 PO; -NEUR100C PO; -POTA1TAB4 PO; -PROZ40CA PO; -ROBA500T PO; +ZOFR4TAB3 SL
[2018-05-01 19:54] VITALS: BP 126/83; PULSE 109; RESP 18; TEMP 98.1; O2SAT 100
--- NOTE | 2018-05-01 21:28 | RADRPT ---
EXAM DATE: 05/01/2018 9:23 PM EDT AGE/SEX: 52 years / Male INDICATIONS: Chest pain. CLINICAL DATA: This is the patient's initial encounter. Patient reports that signs and symptoms have been present for 1 day and indicates a pain score of Nonresponsive. MEDICAL/SURGICAL HISTORY: . Chronic obstructive pulmonary disease. Hepatitis C. . Right shoul cas. COMPARISON: [facility], CHEST SINGLE AP, 11/28/2017. . FINDINGS: Minimal parenchymal changes left mid lung, nonspecific. Right lung clear. The cardiomediastinal conto urs are unremarkable. Osseous structures are intact. CONCLUSION: Minimal parenchymal changes left midlung, nonspecific. Repeat lateral chest would be of benefit in th e patient's clinically stable Electronically signed by: Freeman Devlin MD 05/01/2018 9:27 PM EDT
[2018-05-01 21:40] LABS: AUTOMATED NEUTROPHIL # 8.4 TH/MM3 (1.8-7.7); BASOPHIL % 0.2 % (0.0-2.0); EOSINOPHIL % 0.1 % (0.0-4.0); HEMATOCRIT 33.9 % (39.0-51.0); HEMOGLOBIN 11.6 GM/DL (13.0-17.0); LYMPH % 10.9 % (9.0-44.0); LYMPHOCYTE # 1.1 TH/MM3 (1.0-4.8); MEAN CELL VOLUME 87.7 FL (80.0-100.0); MEAN CORPUSCULAR HGB CONC 34.2 % (32.0-36.0); MONOCYTE # 0.8 TH/MM3 (0-0.9); NEUT % 80.8 % (16.0-70.0); PLATELET COUNT 234 TH/MM3 (150-450); RED BLOOD COUNT 3.87 MIL/MM3 (4.50-5.90); RED CELL DISTRIBUTION WIDTH 14.5 % (11.6-17.2); WHITE BLOOD COUNT 10.4 TH/MM3 (4.0-11.0)
[2018-05-01 22:05] LABS: BICARBONATE 25.3 MEQ/L (21.0-32.0); CALCIUM 7.8 MG/DL (8.5-10.1); CREATININE 1.34 MG/DL (0.60-1.30)
[2018-05-01 22:16] LABS: ACETAMINOPHEN LESS THAN 2.0 MCG/ML (10.0-30.0)
[2018-05-01 22:36] LABS: TROPONIN I 0.1 NG/ML (0.02-0.05)
[2018-05-01 22:53] VITALS: BP 107/69; PULSE 100; RESP 16; O2SAT 96
--- NOTE | 2018-05-01 23:03 | PD ---
HPI Chief Complaint: Chest Pain Time Seen by Provider: 23:00 Travel History International Travel<30 days: No Contact w/Intl Traveler<30days: No Traveled to known affect area: No History of Present Illness HPI The patient is a 52 year old male who presents to the [facility] emergency department with a history of burning sensations on his head and chest pain that began earlier today. He reports that the chest pain is an aching sensation in the center of his chest. He denies having of the pain. He reports having some shortness of breath with it. He denies any prior history of myocardial infarction. He reports that he has been told in the past that he has a mild heart murmur. The patient reports that he has used cocaine recently. He last used cocaine yesterday. The patient reports that he is also been off balance today and fallen twice. The patient has abrasions noted to his head. On review of systems otherwise, the patient reports having diarrhea 3-4 times today. He denies having any blood in his stool, mucus in his stool, or black or tarry stools. The patient reports that he did have one beer today. He denies drinking alcohol on a regular basis. He reports that he did take Xanax which is prescribed to him, and is also on methadone for chronic back pain. On review of systems otherwise, the patient denies having any known recent fevers, cough or congestion, neck pain, diaphoresis, nausea, vomiting, abdominal pain, urinary symptoms, or neurologic symptoms. PFSH Past Medical History Narrative Medical The patient's past medical history is significant for chronic back pain, polysubstance abuse, COPD, hepatitis C, arthritis Hx Anticoagulant Therapy: No Arthritis: Yes Bipolar Disorder: Yes Anxiety: Yes Depression: Yes Cardiovascular Problems: Yes Chemotherapy: No Cerebrovascular Accident: No Diabetes: No Diminished Hearing: No Gastrointestinal Disorders: No Hepatitis: Yes (HEP C) Hypertension: No Immune Disorder: Yes (HEPATITIS C) Implanted Vascular Access Dvce: No Medical other: Yes (ARTHRITIS) Musculoskeletal: Yes (r rotator cuff repair, l thumb plate/screws) Neurologic: Yes Psychiatric: Yes Respiratory: Yes (COPD) Immunizations Current: Yes Myocardial Infarction: Yes Past Surgical History Narrative Surgical The patient's past surgical history is significant for lumbar surgery 2, right shoulder rotator cuff repair. Abdominal Surgery: No Cardiac Surgery: No Ear Surgery: No Endocrine Surgery: No Eye Surgery: No Genitourinary Surgery: No Gynecologic Surgery: No Hysterectomy: No Joint Replacement: No Neurologic Surgery: Yes (LUMBAR LAMINECTOMY X 2) Oral Surgery: No Thoracic Surgery: Yes Other Surgery: Yes (BACK SURGERY 2000; RIGHT SHOULDER ROTATOR CUFF 2001) Social History Alcohol Use: Yes (One beer today) Tobacco Use: Yes (1 pack per day) Substance Use: Yes (Cocaine use yesterday) Allergies-Medications (Allergen,Severity, Reaction): Coded Allergies: haloperidol (Unverified Allergy, Severe, "LOCK JAW", 05/01/18) ketorolac (Unverified Allergy, Severe, RASH, 05/01/18) penicillin G (Unverified Allergy, Severe, RASH, 05/01/18) ziprasidone (Unverified Allergy, Severe, "LOCK JAW", 05/01/18) *MDRO Multi-Drug Resistant Organism (Verified Adverse Reaction, Unknown, ) 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) Reported Meds & Prescriptions Reported Meds & Active Scripts Active Zofran Odt (Ondansetron Odt) 4 Mg Tab 4 Mg SL Q6HR PRN Bentyl (Dicyclomine HCl) 10 Mg Cap 10 Mg PO QID Reported Buspirone (Buspirone HCl) 15 Mg Tab 15 Mg PO DAILY Lamictal (Lamotrigine) 25 Mg Tab 25 Mg PO BID Review of Systems Except as stated in HPI: all other systems reviewed are Neg General / Constitutional: No: Fever Eyes: No: Visual changes HENT: Positive: Headaches, No: Rhinorrhea, Congestion, Neck Stiffness, Neck Pain Cardiovascular: Positive: Chest Pain or Discomfort, Dyspnea on exertion Respiratory: Positive: Shortness of Breath, No: Cough Gastrointestinal: Positive: Diarrhea, Changes in Bowel Habits, No: Nausea, Vomiting, Abdominal Pain, Indigestion, Loss of Appetite Genitourinary: No: Dysuria Musculoskeletal: No: Pain Skin: No Rash Neurologic: No: Weakness, Focal Abnormalities, Change in Mentation, Slurred Speech, Sensory Disturbance Psychiatric: No: Depression Endocrine: No: Polydipsia Hematologic/Lymphatic: No: Easy Bruising Physical Exam Narrative General: The patient is a well-developed well-nourished male, disheveled appearing on arrival, otherwise in no apparent acute distress. Head and Neck exam: Head is normocephalic, with abrasions over his forehead that appeared to be older abrasions. When asked, the patient reports that he has been falling and hit his head. Eyes: EOMI, pupils are equal round and reactive to light. Nose: Midline septum with pink mucous membranes Mouth: Dentition unremarkable. Moist mucus membranes. Posterior oropharynx is not erythematous. No tonsillar hypertrophy. Uvula midline. Airway patent. Neck: No palpable lymphadenopathy. No nuchal rigidity. No thyromegaly. No spinous process tenderness to palpation. No step-off or crepitus. No erythema or ecchymosis. Cardiovascular: Regular rate and rhythm without murmurs, gallops, or rubs. No pulse deficit to the extremities on simultaneous auscultation and palpation of his radial artery. Lungs: Clear to auscultation bilaterally. No wheezes, rhonchi, or rales. Abdomen: Soft, without tenderness to palpation in all 4 quadrants of the abdomen. No guarding, rebound, or rigidity. Normal bowel sounds are audible. No tenderness on palpation of McBurney's point. Negative Mckay sign. Extremities: No clubbing, cyanosis, or edema. 2+ pulses in all 4 extremities. No calf tenderness on palpation. Back: No spinous process tenderness to palpation. No costovertebral angle tenderness to palpation. Neurologic Exam: Grossly nonfocal. Skin Exam: No rash noted. Intact skin that is warm and dry. Data Data Last Documented VS Vital Signs Date Time Temp Pulse Resp B/P (MAP) Pulse Ox O2 Delivery O2 Flow Rate FiO2 05/01/18 22:53 100 16 107/69 (82) 96 Room Air 05/01/18 19:54 98.1 Orders Orders Electrocardiogram (05/01/18 21:08) Complete Blood Count With Diff (05/01/18 21:08) Basic Metabolic Panel (Bmp) (05/01/18 21:08) Ckmb (Isoenzyme) Profile (05/01/18 21:08) Troponin I (05/01/18 21:08) Chest, Single Ap (05/01/18 21:08) Drug Screen, Random Urine (05/01/18 21:15) Alcohol (Ethanol) (05/01/18 21:15) Salicylates (Aspirin) (05/01/18 21:15) Tylenol (Acetaminophen) (05/01/18 21:15) CKMB (05/01/18 21:21) CKMB% (05/01/18 21:21) Nitroglycerin 2% Oint (Nitroglycerin 2% (05/01/18 23:30) Nitroglycerin Sl (Nitrostat Sl) (05/01/18 23:30) Sodium Chlorid 0.9% 500 Ml Inj (Ns 500 M (05/01/18 23:30) Admit Order (Ed Use Only) (05/01/18 23:23) (Hub Use Only)Inp Phy Cons/Ref (05/01/18 ) Ct Brain W/O Iv Contrast(Rout) (05/02/18 23:16) Ct Cerv Spine W/O Contrast (05/02/18 23:16) Consult Psychiatry (05/02/18 ) Place In Observation (05/02/18 ) Vital Signs (Adult) Q4H (05/02/18 00:48) Activity Bed Rest With Brp (05/02/18 ) Vmware Administrator / Telemetry ANITRA.Q8H (05/02/18 00:48) Diet Npo (05/02/18 Breakfast) Sodium Chlor 0.9% 1000 Ml Inj (Ns 1000 M (05/02/18 00:48) Sodium Chloride 0.9% Flush (Ns Flush) (05/02/18 09:00) Sodium Chloride 0.9% Flush (Ns Flush) (05/02/18 01:00) Acetaminophen (Tylenol) (05/02/18 01:00) Acetamin-Hydrocod 325-7.5 Mg ([place] 7.5 (05/02/18 01:00) Morphine Inj (Morphine Inj) (05/02/18 01:00) Creatine Kinase (Cpk) (05/02/18 03:21) Creatine Kinase (Cpk) (05/02/18 09:21) Troponin I (05/02/18 03:21) Troponin I (05/02/18 09:21) Electrocardiogram (05/02/18 03:21) Electrocardiogram (05/02/18 09:21) Heparin Inj (Heparin Inj) (05/02/18 01:00) Labs Laboratory Tests Test 05/01/18 21:17 05/01/18 21:21 Urine Opiates Screen POS Urine Barbiturates Screen NEG Urine Amphetamines Screen NEG Urine Benzodiazepines Screen POS Urine Cocaine Screen POS Urine Cannabinoids Screen NEG White Blood Count 10.4 TH/MM3 Red Blood Count 3.87 MIL/MM3 Hemoglobin 11.6 GM/DL Hematocrit 33.9 % Mean Corpuscular Volume 87.7 FL Mean Corpuscular Hemoglobin 30.0 PG Mean Corpuscular Hemoglobin Concent 34.2 % Red Cell Distribution Width 14.5 % Platelet Count 234 TH/MM3 Mean Platelet Volume 8.0 FL Neutrophils (%) (Auto) 80.8 % Lymphocytes (%) (Auto) 10.9 % Monocytes (%) (Auto) 8.0 % Eosinophils (%) (Auto) 0.1 % Basophils (%) (Auto) 0.2 % Neutrophils # (Auto) 8.4 TH/MM3 Lymphocytes # (Auto) 1.1 TH/MM3 Monocytes # (Auto) 0.8 TH/MM3 Eosinophils # (Auto) 0.0 TH/MM3 Basophils # (Auto) 0.0 TH/MM3 CBC Comment DIFF FINAL Differential Comment Blood Urea Nitrogen 28 MG/DL Creatinine 1.34 MG/DL Random Glucose 100 MG/DL Calcium Level 7.8 MG/DL Sodium Level 135 MEQ/L Potassium Level 3.5 MEQ/L Chloride Level 100 MEQ/L Carbon Dioxide Level 25.3 MEQ/L Anion Gap 10 MEQ/L Estimat Glomerular Filtration Rate 56 ML/MIN Total Creatine Kinase 72986 U/L Creatine Kinase MB 89.1 NG/ML Creatine Kinase MB % 0.1 % Troponin I 0.10 NG/ML Salicylates Level LESS THAN 1.7 MG/DL Acetaminophen Level LESS THAN 2.0 MCG/ML Ethyl Alcohol Level LESS THAN 3 MG/DL [facility] Medical Decision Making Medical Screen Exam Complete: Yes Emergency Medical Condition: Yes Medical Record Reviewed: Yes Differential Diagnosis Acute coronary syndrome, versus acid reflux, versus anxiety disorder, versus and trauma, versus cervical spine trauma, versus alcohol related gastritis Narrative Course During the course of the patient's emergency department visit, the patient's history, examination, and differential diagnosis were reviewed with the patient. The patient was placed on a conveyor monitor with oximetry and frequent blood pressure monitoring. The patient had IV access obtained and blood work sent for analysis. Given the patient's recent falls and abrasions to his head, CT scan of the head and neck was ordered to rule out trauma. The patient was initially provided normal saline at 500 mL bolus 1, nitroglycerin sublingual 1, nitroglycerin 1 inch the chest wall. The patient's laboratory studies were reviewed and remarkable for a white count of 10.4, hemoglobin 11.6, platelets 234 with 80.8 neutrophils, basic metabolic profile is remarkable for a sodium of 135, BUN 28, creatinine 1.34, GFR 56, calcium is 7.8, CPK is 68,780 0.1. The patient's rhabdomyolysis may be related to cocaine use, troponin I is 0.10. Urine drug screen is positive for opiates, benzodiazepines, cocaine, alcohol level less than 3, acetaminophen less than 2, salicylate less than 1.7. Radiology studies were reviewed and remarkable for Last Impressions Chest X-Ray 05/01/182107 Signed Impressions: CONCLUSION: Minimal parenchymal changes left midlung, nonspecific. Repeat lateral chest wou ld be of benefit in the patient's clinically stable CT scan of the brain shows no acute intracranial abnormality, ethmoid and maxillary sinus disease is noted. CT scan of the C-spine shows no evidence of fracture, multilevel degenerative changes with mild central canal narrowing at C6-C7. The patient's results were discussed with the patient, including the plan of care. I explained that further testing and/ or monitoring is indicated based on the patient's history, examination, and/ or laboratory findings. Therefore, I recommended admission for additional evaluation. The patient expressed understanding and was agreeable with this plan. The patient was admitted to the hospital in guarded condition and sent to a bed under the care of [facility]. Physician Communication Physician Communication The patient's case including history, pertinent physical examination findings, and laboratory studies were discussed with Dr. Franks. [facility] Diagnosis Primary Impression: Chest pain, rule out acute myocardial infarction Additional Impressions: Elevated troponin Cocaine use Rhabdomyolysis Qualified Codes: M62.82 - Rhabdomyolysis Admitting Information Admitting Physician Requests: Admit Natacha Loera MD May 01, 2018 23:03
[2018-05-01] MEDS ORDERED: SODIUM CHLORID 0.9% 500 ML INJ 500 ML IV ONE (23:30)
[2018-05-01] MEDS ORDERED: NITROGLYCERIN 2% OINT 1 GM PACKET TOPICAL ONE (23:30)
[2018-05-01] MEDS ORDERED: NITROGLYCERIN 0.4 MG SL 25 TABS/BTL SL ONE (23:30)
[2018-05-02] MEDS ORDERED: LORazepam 2 MG/ML VIAL IV PUSH PRN ×4 (01:00)
[2018-05-02] MEDS ORDERED: HALOPERIDOL LACTATE 5 MG/ML AMP IM PRN (01:00)
[2018-05-02] MEDS ORDERED: ACETAMINOPHEN/HYDROcodone 325 MG/7.5 MG TAB PO PRN (01:00)
[2018-05-02] MEDS ORDERED: LORazepam 1 MG TAB PO PRN (01:00)
[2018-05-02] MEDS ORDERED: ACETAMINOPHEN 500 MG CPLT PO PRN (01:00)
[2018-05-02] MEDS ORDERED: LORazepam 2 MG TAB PO PRN (01:00)
[2018-05-02] MEDS ORDERED: FLUMAZENIL 0.5 MG/5 ML VIAL IV PUSH PRN (01:00)
--- NOTE | 2018-05-02 01:01 | RADRPT ---
EXAM DATE: 05/02/2018 12:51 AM EDT AGE/SEX: 52 years / Male INDICATIONS: Trauma; fall. CLINICAL DATA: This is the patient's initial encounter. Patient reports that signs and symptoms have been present for 1 day and indicates a pain score of 3/10. MEDICAL/SURGICAL HISTORY: Hepatitis C. Chronic obstructive pulmonary disease. Substance abuse. None. RADIATION DOSE: 25.98 CTDI (mGy) COMPARISON: No prior exams available for comparison. TECHNIQUE: Contiguous axial images were obtained using helical multirow detector technique. The vol umetric data was post-processed with multiplanar reconstruction in oblique axial, sagittal, and coron al planes. Using automated exposure control and adjustment of the mA and/or kV according to patient s ize, radiation dose was kept as low as reasonably achievable to obtain optimal diagnostic quality juan daniel ges. FINDINGS: Vertebrae: Normal vertebral body height. Alignment: Normal. No subluxation. C2-3: Left-sided uncovertebral joint spurring. Mild left neural foraminal narrowing. Central canal d iameter within normal limits. C3-4: Broad-based disc osteophyte complex left greater than right and mild bilateral facet arthrosis . Mild left neural foraminal narrowing. Central canal diameter within normal limits. C4-5: Minimal broad-based disc bulge. Central canal diameter within normal limits. Neural foraminal diameters within normal limits. C5-6: Minimal broad-based disc osteophyte complex. Central canal diameter within normal limits. Neur al foraminal diameters within normal limits. C6-7: Broad-based disc osteophyte complex. Mild central canal narrowing. Mild bilateral neural oskar inal narrowing. C7-T1: The bony spinal canal is normal in size. No evidence of disc bulge or herniation. The neura l foramina are bilaterally patent. CONCLUSION: No evidence of fracture. Multilevel degenerative findings with mild central canal narrowing at C6-7. Electronically signed by: Carlos Hightower MD 05/02/2018 12:59 AM EDT
--- NOTE | 2018-05-02 01:03 | RADRPT ---
EXAM DATE: 05/02/2018 12:46 AM EDT AGE/SEX: 52 years / Male INDICATIONS: Trauma; fall. CLINICAL DATA: This is the patient's initial encounter. Patient reports that signs and symptoms have been present for 1 day and indicates a pain score of 4/10. MEDICAL/SURGICAL HISTORY: Hepatitis C. Chronic obstructive pulmonary disease. Substance abuse. No ne. RADIATION DOSE: 56.35 CTDI (mGy) COMPARISON: [facility], CT BRAIN W/O CONTRAST, 09/10/2017. . TECHNIQUE: CT of the head without contrast. Using automated exposure control and adjustment of the mA and/or kV according to patient size, radiation dose was kept as low as reasonably achievable to ob tain optimal diagnostic quality images. FINDINGS: Cerebrum: The ventricles are normal for age. No evidence of midline shift, mass lesion, hemorrhage or acute infarction. No extraaxial fluid collections are seen. Posterior Fossa: The cerebellum and brainstem are intact. The 4th ventricle is midline. The cerebe llopontine angle is unremarkable. Extracranial: Mucosal thickening of the maxillary sinuses bilaterally and mild partial opacification of the ethmoid sinuses bilaterally. Skull: The calvaria is intact. No evidence of skull fracture. CONCLUSION: 1. No acute intracranial findings. 2. Ethmoid and maxillary sinus disease. Electronically signed by: Carlos Hightower MD 05/02/2018 1:01 AM EDT
[2018-05-02] MEDS: HEPARIN SODIUM - SQ 10,000 UNITS/ML VIAL SQ SCH ×3 (01:14→16:57)
[2018-05-02] MEDS: SODIUM CHLOR 0.9% 1000 ML INJ 1,000 ML IV SCH ×5 (01:15→22:06)
[2018-05-02] MEDS: MORPHINE SULFATE 4 MG/ML INJ IV PUSH PRN ×5 (01:15→21:28)
[2018-05-02 01:21] VITALS: BP 109/73; PULSE 95; RESP 17; TEMP 98.3; O2SAT 97
[2018-05-02] MEDS ORDERED: ASPIRIN 81 MG CHEW TAB CHEW ONE (01:30)
--- NOTE | 2018-05-02 03:16 | HHI.HP ---
HPI Service [facility] Primary Care Physician No Primary Care Physician Admission Diagnosis Chest pain, intermediate troponin, cocaine use Diagnoses: Travel History International Travel<30 Days: No Contact w/Intl Traveler <30 Da: No Traveled to Known Affected Are: No History of Present Illness 52-year-old male with past medical history significant for anxiety, alcohol and polysubstance abuse presents the emergency department with a myriad of complaints. The patient complains of bilateral shoulder pain and states that he came to the emergency department because he was feeling depressed. He states he does not want to live anymore and says he considered harming himself. Upon further questioning, the patient does endorse right-sided chest pain that radiates down his right arm. He is a poor historian who says the only medication he takes is Xanax for his anxiety. He has several abrasions on his forehead and states he has been falling regularly but denies any recent substance abuse. He denies any shortness of breath. No abdominal pain. No nausea/vomiting/diarrhea. No lateralizing signs/symptoms. Denies headache. No fever/chills. Review of Systems Except as stated in HPI: all other systems reviewed are Neg Past Family Social History Past Medical History Alcohol abuse Cocaine abuse Anxiety Past Surgical History Rotator cuff 2 Laminectomy 2 Thumb surgery Reported Medications Reported Meds & Active Scripts Active Zofran Odt (Ondansetron Odt) 4 Mg Tab 4 Mg SL Q6HR PRN Bentyl (Dicyclomine HCl) 10 Mg Cap 10 Mg PO QID Reported Buspirone (Buspirone HCl) 15 Mg Tab 15 Mg PO DAILY Lamictal (Lamotrigine) 25 Mg Tab 25 Mg PO BID Allergies: Coded Allergies: haloperidol (Unverified Allergy, Severe, "LOCK JAW", 05/01/18) ketorolac (Unverified Allergy, Severe, RASH, 05/01/18) penicillin G (Unverified Allergy, Severe, RASH, 05/01/18) ziprasidone (Unverified Allergy, Severe, "LOCK JAW", 05/01/18) *MDRO Multi-Drug Resistant Organism (Verified Adverse Reaction, Unknown, ) 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 Of note, the patient told the emergency department physician that he last did cocaine yesterday. He has also previously been admitted for alcohol intoxication. Physical Exam Vital Signs Vital Signs Date Time Temp Pulse Resp B/P (MAP) Pulse Ox O2 Delivery O2 Flow Rate FiO2 05/02/18 01:21 98.3 95 17 109/73 (85) 97 05/02/18 01:20 05/02/18 01:20 15 05/01/18 22:53 100 16 107/69 (82) 96 Room Air 05/01/18 19:54 98.1 109 18 126/83 (97) 100 Physical Exam GENERAL: Disheveled, male lying in bed SKIN: Multiple abrasions to the forehead and upper extremities HEAD: Normocephalic. No temporal or scalp tenderness. EYES: Pupils equal round and reactive. Extraocular motions intact. No scleral icterus. No injection or drainage. ENT: Nose without bleeding, purulent drainage or septal hematoma. Throat without erythema, tonsillar hypertrophy or exudate. Uvula midline. Airway patent. NECK: Trachea midline. No JVD or lymphadenopathy. Supple, nontender, no meningeal signs. CARDIOVASCULAR: Regular rate and rhythm without murmurs, gallops, or rubs. RESPIRATORY: Clear to auscultation. Breath sounds equal bilaterally. No wheezes , rales, or rhonchi. GASTROINTESTINAL: Abdomen soft, non-tender, nondistended. No hepato-splenomegaly , or palpable masses. No guarding. MUSCULOSKELETAL: Extremities without clubbing, cyanosis, or edema. No joint tenderness, effusion, or edema noted. No calf tenderness. NEUROLOGICAL: Awake and alert. Cranial nerves II through XII intact. Motor and sensory grossly within normal limits. Normal speech. Laboratory Laboratory Tests Test 05/01/18 21:17 05/01/18 21:21 Urine Opiates Screen POS Urine Barbiturates Screen NEG Urine Amphetamines Screen NEG Urine Benzodiazepines Screen POS Urine Cocaine Screen POS Urine Cannabinoids Screen NEG White Blood Count 10.4 Red Blood Count 3.87 Hemoglobin 11.6 Hematocrit 33.9 Mean Corpuscular Volume 87.7 Mean Corpuscular Hemoglobin 30.0 Mean Corpuscular Hemoglobin Concent 34.2 Red Cell Distribution Width 14.5 Platelet Count 234 Mean Platelet Volume 8.0 Neutrophils (%) (Auto) 80.8 Lymphocytes (%) (Auto) 10.9 Monocytes (%) (Auto) 8.0 Eosinophils (%) (Auto) 0.1 Basophils (%) (Auto) 0.2 Neutrophils # (Auto) 8.4 Lymphocytes # (Auto) 1.1 Monocytes # (Auto) 0.8 Eosinophils # (Auto) 0.0 Basophils # (Auto) 0.0 CBC Comment DIFF FINAL Differential Comment Blood Urea Nitrogen 28 Creatinine 1.34 Random Glucose 100 Calcium Level 7.8 Sodium Level 135 Potassium Level 3.5 Chloride Level 100 Carbon Dioxide Level 25.3 Anion Gap 10 Estimat Glomerular Filtration Rate 56 Total Creatine Kinase 44302 Creatine Kinase MB 89.1 Creatine Kinase MB % 0.1 Troponin I 0.10 Salicylates Level LESS THAN 1.7 Acetaminophen Level LESS THAN 2.0 Ethyl Alcohol Level LESS THAN 3 Result Diagram: 05/01/18212005/01/182120 Caprini VTE Risk Assessment Caprini VTE Risk Assessment: No/Low Risk (score <= 1) Caprini Risk Assessment Model Point Value = 1 Point Value = 2 Point Value = 3 Point Value = 5 Age 41-60 Minor surgery BMI > 25 kg/m2 Swollen legs Varicose veins or History of unexplained or recurrent spontaneous Oral contraceptives or hormone replacement Sepsis (< 1 month) Serious lung disease, including pneumonia (< 1 month) Abnormal pulmonary function Acute myocardial infarction Congestive heart failure (< 1 month) History of inflammatory bowel disease Medical patient at bed rest Age 61-74 Arthroscopic surgery Major open surgery (> 45 min) Laparoscopic surgery (> 45 min) Malignancy Confined to bed (> 72 hours) Immobilizing plaster cast Central venous access Age >= 75 History of VTE Family history of VTE Factor V Leiden Prothrombin [id number] Lupus anticoagulant Anticardiolipin antibodies Elevated serum homocysteine Heparin-induced thrombocytopenia Other congenital or acquired thrombophilia Stroke (< 1 month) Elective arthroplasty Hip, pelvis, or leg fracture Acute spinal cord injury (< 1 month) Prophylaxis Regimen Total Risk Factor Score Risk Level Prophylaxis Regimen 0-1 Low Early ambulation 2 Moderate Order ONE of the following: *Sequential Compression Device (SCD) *Heparin 5000 units SQ BID 3-4 Higher Order ONE of the following medications: *Heparin 5000 units SQ TID *Enoxaparin/Lovenox 40 mg SQ daily (WT < 150 kg, CrCl > 30 mL/min) *Enoxaparin/Lovenox 30 mg SQ daily (WT < 150 kg, CrCl > 10-29 mL/min) *Enoxaparin/Lovenox 30 mg SQ BID (WT < 150 kg, CrCl > 30 mL/min) AND/OR *Sequential Compression Device (SCD) 5 or more Highest Order ONE of the following medications: *Heparin 5000 units SQ TID (Preferred with Epidurals) *Enoxaparin/Lovenox 40 mg SQ daily (WT < 150 kg, CrCl > 30 mL/min) *Enoxaparin/Lovenox 30 mg SQ daily (WT < 150 kg, CrCl > 10-29 mL/min) *Enoxaparin/Lovenox 30 mg SQ BID (WT < 150 kg, CrCl > 30 mL/min) AND *Sequential Compression Device (SCD) Assessment and Plan Assessment and Plan Assessment/plan: 1. Chest pain Patient complains of right-sided chest pain EKG showed sinus rhythm without ST segment elevations or depressions, personally reviewed Initial troponin 0.10 ACS rule out pending; serial troponins/EKGs 2. Suicidal ideation Patient reports feelings of depression and states he does not wish to live Claims he has considered self-harm Psychiatry consulted, appreciate recommendations Patient placed under Perera act 3[place] [address] IV fluid hydration Monitor renal function Creatinine 1.34 4. Polysubstance abuse Unclear when patient's last use of alcohol or illicit drugs was Urine drug screen positive for benzos, cocaine and opiates [facility] protocol Monitor for signs of withdrawal Head CT negative for acute findings FEN N.p.o. Electrolytes: Monitor and replete as needed NS at 200 cc/hour Heparin Carla Franks MD May 02, 2018 03:16
[2018-05-02 04:33] LABS: TROPONIN I 0.08 NG/ML (0.02-0.05)
[2018-05-02 04:58] VITALS: BP 97/54; PULSE 88; RESP 17; TEMP 98.3; O2SAT 94
[2018-05-02 07:44] VITALS: BP 105/59; PULSE 83; RESP 20; TEMP 93.2; O2SAT 94
--- NOTE | 2018-05-02 09:01 | EKG ---
Date Performed: 05/02/2018 Time Performed: 05:00:27 PTAGE: 52 years EKG: Sinus rhythm POSSIBLE INFERIOR MYOCARDIAL INFARCTION BORDERLINE ECG PREVIOUS TRACING : 05/01/2018 20.28 DOCTOR: Emre Ng Interpretating Date/Time 05/02/2018 09:00:12
--- NOTE | 2018-05-02 09:10 | EKG ---
Date Performed: 05/01/2018 Time Performed: 20:28:36 PTAGE: 52 years EKG: Sinus rhythm WITH SHORT CA INTERVAL WITH OCCASIONAL ECTOPIC PREMATURE COMPLEXES BORDERLINE ECG PREVIOUS TRACING : 01/02/2017 13.02 DOCTOR: Emre Ng Interpretating Date/Time 05/02/2018 09:09:34
[2018-05-02] MEDS: FOLIC ACID 1 MG TAB PO SCH (10:12)
[2018-05-02] MEDS: THIAMINE HCL 100 MG TAB PO SCH (10:12)
[2018-05-02] MEDS: MULTIVITAMINS/MINERALS THERAPEUTIC TAB PO SCH (10:12)
[2018-05-02] MEDS: SODIUM CHLORIDE 0.9% FLUSH 10 ML FLUSH IV FLUSH SCH ×2 (10:13→21:27)
[2018-05-02 11:15] LABS: TROPONIN I 0.05 NG/ML (0.02-0.05)
[2018-05-02 11:39] VITALS: BP 107/65; PULSE 86; RESP 20; TEMP 98.4; O2SAT 94
--- NOTE | 2018-05-02 12:33 | PD.PSY.CON ---
Provisional Diagnosis Admission Date May 02, 2018 at 00:51 [place] I. Bipolar disorder, current episode depressive, polysubstance dependence including cocaine, benzodiazepines, opiates, history of anxiety [place] II. Unspecified personality disorder, cluster B traits [place] III. Chest pain History of Present Illness Service Psychiatry Consult Requested By ER team Reason for Consult Suicidal attempt Primary Care Physician No Primary Care Physician HPI The patient is 52-year-old man, domiciled with his mother in [place], , unemployed, supported by [facility], with psychiatric history of anxiety, bipolar disorder, multiple psychiatric hospitalizations, suicide attempts, established outpatient care with Dr. Salgado, he is on BuSpar 15 mg 3 times daily, Prozac 40 mg, gabapentin 3 mg daily, Lamictal 200 mg, polysubstance dependence including alcohol, cannabis, benzodiazepines, cocaine, no significant medical history, who presents the emergency department with a myriad of complaints. The patient complains of bilateral shoulder pain and states that he came to the emergency department because he was feeling depressed. He states he does not want to live anymore and says he considered harming himself. Upon further questioning, the patient does endorse right- sided chest pain that radiates down his right arm. He is a poor historian who says the only medication he takes is Xanax for his anxiety. He has several abrasions on his forehead and states he has been falling regularly but denies any recent substance abuse. He denies any shortness of breath. No abdominal pain. No nausea/vomiting/diarrhea. No lateralizing signs/symptoms. Denies headache. No fever/chills. He is BAL is positive for benzos, cocaine, opiates. The patient was admitted due to chest pain. EKG showed sinus rhythm without ST segment elevations or depressions, personally reviewed. Initial troponin 0.10. Last night the patient had an episode of agitation, in which he was saying that he wanted to kill himself, he took the cord of the medical records director and wrapped his neck stating that he wanted to kill herself and had to be medicated with Haldol and Ativan. Today my psychiatric evaluation the patient is calm, cooperative, he states that he is done with his life and he wants to kill himself. Patient reports that he has recently ended up his relationship with girlfriend, she left him and right now he is alone and homeless. He also reports that he has lost his father about 5 months ago "I had no support, I have no reason to live anymore". The patient reports anhedonia, reports hopelessness, reports helplessness, and active suicidal ideation with a plan of hanging himself. The patient reports that he has been taking his medication as prescribed by his outpatient doctor and he was stable until about "2 or 3 months ago" when he started to decompensate little by little. The patient reports the use of cocaine occasionally, alcohol and Xanax. The patient is logical, coherent and relevant. He denies homicidal ideation, denies visual and auditory hallucinations. Review of Systems Constitutional: DENIES: Diaphoretic episodes, Fatigue, Fever, Weight gain, Weight loss, Chills, Dizziness, Change in appetite, Night Sweats Endocrine: DENIES: Heat/cold intolerance, Polydipsia, Polyuria, Polyphagia Eyes: DENIES: Blurred vision, Diplopia, Eye inflammation, Eye pain, Vision loss , Photosensitivity, Double Vision Ears, nose, mouth, throat: DENIES: Tinnitus, Hearing loss, Vertigo, Nasal discharge, Oral lesions, Throat pain, Hoarseness, Ear Pain, Running Nose, Epistaxis, Sinus Pain, Toothache, Odynophagia Respiratory: DENIES: Apneas, Cough, Snoring, Wheezing, Hemoptysis, Sputum production, Shortness of breath Cardiovascular: DENIES: Chest pain, Palpitations, Syncope, Dyspnea on Exertion , PND, Lower Extremity Edema, Orthopnea, Claudication Gastrointestinal: DENIES: Abdominal pain, Black stools, Bloody stools, Constipation, Diarrhea, Nausea, Vomiting, Difficulty Swallowing, Anorexia Genitourinary: DENIES: Sexual dysfunction, Urinary frequency, Urinary incontinence, Urgency, Hematuria, Dysuria, Nocturia, Penile Discharge, Testicular Pain, Testicular Swelling Musculoskeletal: DENIES: Joint pain, Muscle aches, Stiffness, Joint Swelling, Back pain, Neck pain Integumentary: DENIES: Abnormal pigmentation, Nail changes, Pruritus, Rash Hematologic/lymphatic: DENIES: Bruising, Lymphadenopathy Immunologic/allergic: DENIES: Eczema, Urticaria Neurologic: DENIES: Abnormal gait, Headache, Localized weakness, Paresthesias, Seizures, Speech Problems, Tremor, Poor Balance Psychiatric: COMPLAINS OF: Mood changes, Suicidal Ideation, Delusions, DENIES: Anxiety, Confusion, Depression, Hallucinations, Agitation, Homicidal Ideation Past Family Social History Coded Allergies: haloperidol (Unverified Allergy, Severe, "LOCK [place]AW", 05/01/18) ketorolac (Unverified Allergy, Severe, RASH, 05/01/18) penicillin G (Unverified Allergy, Severe, RASH, 05/01/18) ziprasidone (Unverified Allergy, Severe, "LOCK JAW", 05/01/18) *MDRO Multi-Drug Resistant Organism (Verified Adverse Reaction, Unknown, ) 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) Active Scripts Ondansetron Odt (Zofran Odt) 4 Mg Tab, 4 MG SL Q6HR Y for Nausea/Vomiting, #30 TAB 0 Refills Prov:Brandyn Taylor MD 12/02/17 Dicyclomine (Bentyl) 10 Mg Cap, 10 MG PO QID for Bowel Management, #21 CAP 0 Refills Prov:Brandyn Taylor MD 12/02/17 Reported Medications Buspirone (Buspirone) 15 Mg Tab, 15 MG PO DAILY for Anxiety, TAB 0 Refills 12/02/17 Lamotrigine (Lamictal) 25 Mg Tab, 25 MG PO BID for Control Seizures, #60 TAB 0 Refills 10/04/16 Current Medications Medications (Trade) Dose Ordered Sig/Mikayla Route Start Time Stop Time Status Last Admin Sodium Chloride 1,000 ml @ 200 mls/hr Q5H IV 05/02/18 00:48 05/02/18 10:13 (NS Flush) 2 ml BID IV FLUSH 05/02/18 09:00 05/02/18 10:13 (NS Flush) 2 ml UNSCH PRN IV FLUSH 05/02/18 01:00 (Tylenol) 500 mg Q4H PRN PO 05/02/18 01:00 ([place] 7.5-325 Mg) 1 tab Q4H PRN PO 05/02/18 01:00 (Morphine Inj) 2 mg Q5M PRN IV PUSH 05/02/18 01:00 05/02/18 10:11 (Heparin Inj) 5,000 units Q8H SQ 05/02/18 01:00 05/02/18 10:13 (Folate) 1 mg DAILY PO 05/02/18 09:00 05/07/18 08:59 05/02/18 10:12 (Vitamin B1) 100 mg DAILY PO 05/02/18 09:00 05/02/18 10:12 (Theragran M Tab) 1 tab DAILY PO 05/02/18 09:00 05/07/18 08:59 05/02/18 10:12 (Romazicon Inj) 0.2 mg Q1M PRN IV PUSH 05/02/18 01:00 (Ativan) 1 mg Q4H PRN PO 05/02/18 01:00 (Ativan Inj) 1 mg Q4H PRN IV PUSH 05/02/18 01:00 (Ativan) 2 mg Q2H PRN PO 05/02/18 01:00 (Ativan Inj) 2 mg Q2H PRN IV PUSH 05/02/18 01:00 (Ativan Inj) 2 mg Q1H PRN IV PUSH 05/02/18 01:00 (Ativan Inj) 2 mg Q15M PRN IV PUSH 05/02/18 01:00 (Haldol Inj) 2 mg Q15M PRN IM 05/02/18 01:00 Family Psych History He denies family psychiatric history Social History Patient was born and raised in [place], he lives in [place] with his mother , single, unemployed, supported by [facility] Patient's Strengths (min. 2) Outpatient psychiatric care Physical Exam No tremors, no EPS, no psychomotor agitation or retardation, no gait disturbance , no withdrawal Vital Signs Vital Signs Date Time Temp Pulse Resp B/P (MAP) Pulse Ox O2 Delivery O2 Flow Rate FiO2 05/02/18 11:39 98.4 86 20 107/65 (79) 94 05/01/18 22:53 Room Air I/O 05/02/18 05/02/18 05/03/18 08:00 16:00 00:00 Intake Total 500 ml Output Total 400 ml 300 ml Balance 100 ml -300 ml Lab Results Test 05/01/18 21:17 05/01/18 21:21 05/02/18 03:33 05/02/18 10:12 Urine Opiates Screen POS Urine Barbiturates Screen NEG Urine Amphetamines Screen NEG Urine Benzodiazepines Screen POS Urine Cocaine Screen POS Urine Cannabinoids Screen NEG White Blood Count 10.4 TH/MM3 Red Blood Count 3.87 MIL/MM3 Hemoglobin 11.6 GM/DL Hematocrit 33.9 % Mean Corpuscular Volume 87.7 FL Mean Corpuscular Hemoglobin 30.0 PG Mean Corpuscular Hemoglobin Concent 34.2 % Red Cell Distribution Width 14.5 % Platelet Count 234 TH/MM3 Mean Platelet Volume 8.0 FL Neutrophils (%) (Auto) 80.8 % Lymphocytes (%) (Auto) 10.9 % Monocytes (%) (Auto) 8.0 % Eosinophils (%) (Auto) 0.1 % Basophils (%) (Auto) 0.2 % Neutrophils # (Auto) 8.4 TH/MM3 Lymphocytes # (Auto) 1.1 TH/MM3 Monocytes # (Auto) 0.8 TH/MM3 Eosinophils # (Auto) 0.0 TH/MM3 Basophils # (Auto) 0.0 TH/MM3 CBC Comment DIFF FINAL Differential Comment Blood Urea Nitrogen 28 MG/DL Creatinine 1.34 MG/DL Random Glucose 100 MG/DL Calcium Level 7.8 MG/DL Sodium Level 135 MEQ/L Potassium Level 3.5 MEQ/L Chloride Level 100 MEQ/L Carbon Dioxide Level 25.3 MEQ/L Anion Gap 10 MEQ/L Estimat Glomerular Filtration Rate 56 ML/MIN Total Creatine Kinase 25682 U/L 85109 U/L 25537 U/L Creatine Kinase MB 89.1 NG/ML 46.1 NG/ML 27.3 NG/ML Creatine Kinase MB % 0.1 % 0.1 % 0.1 % Troponin I 0.10 NG/ML 0.08 NG/ML 0.05 NG/ML Salicylates Level LESS THAN 1.7 MG/DL Acetaminophen Level LESS THAN 2.0 MCG/ML Ethyl Alcohol Level LESS THAN 3 MG/DL Test 05/02/18 11:39 Mental Status Examination Appearance: Dirty, Disheveled, Other (Multiple tattoos) Consciousness: Alert Orientation: x4 Motor Activity: Normal gait Speech: Unremarkable Language: Adequate Fund of Knowledge: Adequate Attention and Concentration: Adequate Memory: Unremarkable Mood: Sad Affect: Irritable, Sad Thought Process & Associations: Intact Thought Content: Appropriate Hallucination Type: None Delusion Type: None Suicidal Ideation: Yes Suicidal Plan: Yes Suicidal Intention: No Homicidal Ideation: No Homicidal Plan: No Homicidal Intention: No Insight: Poor Judgment: Poor Assessment & Plan Problem List: (1) Bipolar depression ICD Codes: F31.30 - Bipolar disorder, current episode depressed, mild or moderate severity, unspecified Assessment & Plan: On psychiatric evaluation today the patient is endorses symptomatology of depression consisting and hopelessness, helplessness, anhedonia, lack of motivation, worthlessness, suicidal ideation with plan of hanging himself, the patient has tried to put a cord in his neck in the ER with suicidal intentions and had to be chemically restrained for safety. Patient reports as an acute stressor recent breakup with girlfriend, of his father and continues use of cocaine, alcohol, benzodiazepines and opiates. The patient has a psychiatric history of bipolar disorder, multiple psychiatric hospitalizations, poor impulse control, poor coping skill, previous suicidal attempts, self cutting behavior. The patient has an elevated risk of danger to self, he needs to be admitted in psychiatry for stabilization and safety. Given his reported symptomatology of depression, his history of bipolar disorder and previous suicide attempts, a bipolar decompensation needs to be carefully explored further during admission, but in the other side due to his history of polysubstance dependence, clinically significant identified cluster B traits, conscious simulation with secondary gain of use in the hospital as a alf and a as source of narcotics also needs to be high in the differential. I will restart Lamictal in 25 mg twice daily, Prozac 40 mg, BuSpar 15 mg 3 times per day, and gabapentin 300 mg 2 times per day. Try to avoid narcotics as much as possible.Will place the patient is CIWA. Continue with a one-to-one sitter in the ER. Transfer to psychiatry was medically stable. Could go to MED- psy. Assessment & Plan Estimated LOS: days Del Casanova MD May 02, 2018 12:33
[2018-05-02 13:05] LABS: BICARBONATE 22.7 MEQ/L (21.0-32.0); CALCIUM 7.5 MG/DL (8.5-10.1); CREATININE 0.87 MG/DL (0.60-1.30)
--- NOTE | 2018-05-02 13:05 | EKG ---
Date Performed: 05/02/2018 Time Performed: 09:29:41 PTAGE: 52 years EKG: Sinus rhythm NORMAL ECG PREVIOUS TRACING : 05/02/2018 05.00 DOCTOR: Emre Ng Interpretating Date/Time 05/02/2018 13:03:14
[2018-05-02] MEDS: lamoTRIgine 25 MG TAB PO SCH ×2 (13:15→21:28)
[2018-05-02] MEDS: busPIRone HCL 5 MG TAB PO SCH (13:15)
[2018-05-02 15:37] VITALS: BP 109/60; PULSE 84; RESP 20; TEMP 97; O2SAT 97
[2018-05-02] MEDS ORDERED: SODIUM BICARBONATE 650 MG TAB PO ONE (16:30)
[2018-05-02 19:59] VITALS: BP 104/58; PULSE 85; RESP 17; TEMP 98.4; O2SAT 95
[2018-05-03] MEDS: HEPARIN SODIUM - SQ 10,000 UNITS/ML VIAL SQ SCH ×2 (00:25→09:12)
[2018-05-03] MEDS: SODIUM CHLORIDE 0.9% FLUSH 10 ML FLUSH IV FLUSH PRN ×2 (00:26→06:36)
[2018-05-03] MEDS: MORPHINE SULFATE 4 MG/ML INJ IV PUSH PRN ×4 (00:26→12:52)
[2018-05-03 00:30] VITALS: PULSE 87
[2018-05-03 01:15] VITALS: BP 109/57; PULSE 82; RESP 16; TEMP 98.4; O2SAT 97
[2018-05-03] MEDS: SODIUM CHLOR 0.9% 1000 ML INJ 1,000 ML IV SCH ×2 (03:20→09:11)
[2018-05-03 07:48] LABS: AUTOMATED NEUTROPHIL # 5.4 TH/MM3 (1.8-7.7); BASOPHIL % 0.4 % (0.0-2.0); EOSINOPHIL # 0.1 TH/MM3 (0-0.4); EOSINOPHIL % 1.7 % (0.0-4.0); HEMATOCRIT 29.4 % (39.0-51.0); HEMOGLOBIN 10.1 GM/DL (13.0-17.0); LYMPH % 18.9 % (9.0-44.0); LYMPHOCYTE # 1.4 TH/MM3 (1.0-4.8); MEAN CELL VOLUME 89.2 FL (80.0-100.0); MEAN CORPUSCULAR HEMOGLOBIN 30.8 PG (27.0-34.0); MEAN CORPUSCULAR HGB CONC 34.5 % (32.0-36.0); MONO % 5.7 % (0.0-8.0); MONOCYTE # 0.4 TH/MM3 (0-0.9); NEUT % 73.3 % (16.0-70.0); PLATELET COUNT 180 TH/MM3 (150-450); RED BLOOD COUNT 3.29 MIL/MM3 (4.50-5.90); RED CELL DISTRIBUTION WIDTH 15.1 % (11.6-17.2); WHITE BLOOD COUNT 7.4 TH/MM3 (4.0-11.0)
[2018-05-03 08:26] LABS: BICARBONATE 23.6 MEQ/L (21.0-32.0); CREATININE 0.79 MG/DL (0.60-1.30); MAGNESIUM 2.1 MG/DL (1.5-2.5); PHOSPHORUS 1.9 MG/DL (2.5-4.9)
[2018-05-03 08:41] LABS: CALCIUM 7.1 MG/DL (8.5-10.1)
[2018-05-03 09:00] VITALS: PULSE 82
[2018-05-03] MEDS ORDERED: CALCIUM GLUCONATE INJ 1 GM in SODIUM CHLORIDE 0.9% INJ 100 ML IV ONE (09:00)
[2018-05-03] MEDS: SODIUM CHLORIDE 0.9% FLUSH 10 ML FLUSH IV FLUSH SCH (09:00)
[2018-05-03] MEDS ORDERED: FLUoxetine HCL 20 MG CAP PO SCH (09:00)
[2018-05-03] MEDS: MULTIVITAMINS/MINERALS THERAPEUTIC TAB PO SCH (09:11)
[2018-05-03] MEDS: FOLIC ACID 1 MG TAB PO SCH (09:11)
[2018-05-03] MEDS: THIAMINE HCL 100 MG TAB PO SCH (09:12)
[2018-05-03] MEDS: busPIRone HCL 5 MG TAB PO SCH (09:12)
[2018-05-03] MEDS: lamoTRIgine 25 MG TAB PO SCH (09:12)
[2018-05-03] MEDS ORDERED: FLUO20CA12 PO (09:19)
[2018-05-03] MEDS ORDERED: THIA100 PO (09:19)
[2018-05-03 09:51] VITALS: BP 129/74; PULSE 81; RESP 20; TEMP 98.4; O2SAT 98
[2018-05-03] MEDS ORDERED: POTASSIUM PHOSPHATE MONOBASIC 500 MG TAB PO ONE (10:00)
[2018-05-03 12:47] VITALS: BP 118/83; PULSE 82; RESP 21; TEMP 98.2; O2SAT 97
--- NOTE | 2018-05-03 13:59 | HHI.PR ---
Subjective Remarks Patient reports diffuse pain all over. Denies any nausea or vomiting. No acute events per nursing. Objective Vital Signs Date Time Temp Pulse Resp B/P (MAP) Pulse Ox O2 Delivery O2 Flow Rate FiO2 05/03/18 12:47 98.2 82 21 118/83 (95) 97 05/03/18 09:51 98.4 81 20 129/74 (92) 98 05/03/18 09:00 82 05/03/18 06:41 15 05/03/18 05:33 15 05/03/18 01:15 98.4 82 16 109/57 (74) 97 05/03/18 00:30 87 05/02/18 19:59 98.4 85 17 104/58 (73) 95 05/02/18 15:37 97.0 84 20 109/60 (76) 97 I/O 05/02/18 05/02/18 05/02/18 05/03/18 05/03/18 05/03/18 07:00 15:00 23:00 07:00 15:00 23:00 Intake Total 500 ml 1080 ml 522 ml 1000 ml Output Total 700 ml 900 ml 300 ml Balance 500 ml 380 ml -378 ml 700 ml Intake Oral 1080 ml 522 ml IV Total 500 ml 1000 ml Output Urine Total 700 ml 900 ml 300 ml Result Diagram: 05/03/1862905/03/18629 Objective Remarks GENERAL: Patient lying in bed sleeping, wakes up for exam. Appears comfortable. SKIN: Warm and dry. HEAD: Normocephalic. EYES: No scleral icterus. No injection or drainage. NECK: Supple, trachea midline. No JVD . CARDIOVASCULAR: Regular rate and rhythm without murmurs, gallops, or rubs. RESPIRATORY: Breath sounds equal bilaterally. No accessory muscle use. GASTROINTESTINAL: Abdomen soft, non-tender, nondistended. MUSCULOSKELETAL: No cyanosis, or edema. Diffuse muscle and tenderness. Improved from yesterday. BACK: Nontender without obvious deformity. No CVA tenderness. A/P Assessment and Plan //Chest pain Patient complains of right-sided chest pain EKG showed sinus rhythm without ST segment elevations or depressions, personally reviewed Initial troponin 0.10 ACS rule out pending; serial troponins/EKGs = No indication of ACS. Slight troponin elevation is artifactual secondary to CK. //Suicidal ideation Patient reports feelings of depression and states he does not wish to live Claims he has considered self-harm Psychiatry consulted, appreciate recommendations Patient placed under Perera act = Appreciate psychiatry assistance. Discharged to inpatient medical psychiatry //[place] [address] IV fluid hydration Monitor renal function Creatinine 1.34 = Creatinine 0.79. Continue IV fluids. Replace phosphorus. // Polysubstance abuse Unclear when patient's last use of alcohol or illicit drugs was Urine drug screen positive for benzos, cocaine and opiates [facility] protocol Monitor for signs of withdrawal Head CT negative for acute findings Discharge Planning Discharge inpatient psychiatry where patient can get continued treatment for rhabdomyolysis, as well as suicidal ideation. Jerry Peraza MD May 03, 2018 13:59
--- NOTE | 2018-05-03 14:02 | HHI.DS ---
Discharge Summary Admission Date May 02, 2018 at 00:51 Discharge Date: May 03, 2018 Admitting Diagnosis Chest pain, intermediate troponin, cocaine use (1) Rhabdomyolysis ICD Code: M62.82 - Rhabdomyolysis (2) Cocaine abuse ICD Code: F14.10 - Cocaine abuse, uncomplicated (3) Bipolar depression ICD Code: F31.30 - Bipolar disorder, current episode depressed, mild or moderate severity, unspecified Procedures No invasive procedures. Brief History - From Admission 52-year-old male with past medical history significant for anxiety, alcohol and polysubstance abuse presents the emergency department with a myriad of complaints. The patient complains of bilateral shoulder pain and states that he came to the emergency department because he was feeling depressed. He states he does not want to live anymore and says he considered harming himself. Upon further questioning, the patient does endorse right-sided chest pain that radiates down his right arm. He is a poor historian who says the only medication he takes is Xanax for his anxiety. He has several abrasions on his forehead and states he has been falling regularly but denies any recent substance abuse. He denies any shortness of breath. No abdominal pain. No nausea/vomiting/diarrhea. No lateralizing signs/symptoms. Denies headache. No fever/chills. CBC/BMP: 05/03/18 0630 05/03/18 0630 Significant Findings Laboratory Tests Test 05/01/18 21:17 05/01/18 21:21 05/02/18 03:33 05/02/18 10:12 Urine Opiates Screen POS (NEG) Urine Benzodiazepines Screen POS (NEG) Urine Cocaine Screen POS (NEG) Red Blood Count 3.87 MIL/MM3 (4.50-5.90) Hemoglobin 11.6 GM/DL (13.0-17.0) Hematocrit 33.9 % (39.0-51.0) Neutrophils (%) (Auto) 80.8 % (16.0-70.0) Neutrophils # (Auto) 8.4 TH/MM3 (1.8-7.7) Blood Urea Nitrogen 28 MG/DL (7-18) Creatinine 1.34 MG/DL (0.60-1.30) Calcium Level 7.8 MG/DL (8.5-10.1) Sodium Level 135 MEQ/L (136-145) Estimat Glomerular Filtration Rate 56 ML/MIN (>89) Total Creatine Kinase 64073 U/L (39-308) 38691 U/L (39-308) 71867 U/L (39-308) Creatine Kinase MB 89.1 NG/ML (0.5-3.6) 46.1 NG/ML (0.5-3.6) 27.3 NG/ML (0.5-3.6) Troponin I 0.10 NG/ML (0.02-0.05) 0.08 NG/ML (0.02-0.05) Salicylates Level LESS THAN 1.7 MG/DL Acetaminophen Level LESS THAN 2.0 MCG/ML Test 05/02/18 11:39 05/03/18 06:30 Calcium Level 7.5 MG/DL (8.5-10.1) 7.1 MG/DL (8.5-10.1) Red Blood Count 3.29 MIL/MM3 (4.50-5.90) Hemoglobin 10.1 GM/DL (13.0-17.0) Hematocrit 29.4 % (39.0-51.0) Neutrophils (%) (Auto) 73.3 % (16.0-70.0) Albumin 2.0 GM/DL (3.4-5.0) Phosphorus Level 1.9 MG/DL (2.5-4.9) Chloride Level 111 MEQ/L (98-107) Total Creatine Kinase 8641 U/L (39-308) Creatine Kinase MB 6.9 NG/ML (0.5-3.6) Imaging Last Impressions Head CT 05/02/182315 Signed Impressions: CONCLUSION: 1. No acute intracranial findings. 2. Ethmoid and maxillary sinus disease. Cervical Spine CT 05/02/182315 Signed Impressions: CONCLUSION: No evidence of fracture. Multilevel degenerative findings with mild central can al narrowing at C6-7. Chest X-Ray 05/01/182107 Signed Impressions: CONCLUSION: Minimal parenchymal changes left midlung, nonspecific. Repeat lateral chest wou ld be of benefit in the patient's clinically stable Hospital Course He presented with suicidal ideation and diffuse muscle pain. Cocaine positive. As well as apparently chest pain. Troponins elevated, however CK-MB percentage indicates this is secondary to general CK elevation. CK 68,000 on admission, slowly trending down to 8000 after IV fluid administration. Patient will need to continue on IV fluids until CK is less than 5000. Patient was discharged to inpatient psychiatry for continued treatment of suicidal ideation as well as rhabdomyolysis. For problem based summary from most recent progress note, please see below. //Chest pain Patient complains of right-sided chest pain EKG showed sinus rhythm without ST segment elevations or depressions, personally reviewed Initial troponin 0.10 ACS rule out pending; serial troponins/EKGs = No indication of ACS. Slight troponin elevation is artifactual secondary to CK. //Suicidal ideation Patient reports feelings of depression and states he does not wish to live Claims he has considered self-harm Psychiatry consulted, appreciate recommendations Patient placed under Perera act = Appreciate psychiatry assistance. Discharged to inpatient medical psychiatry //[place] [address] IV fluid hydration Monitor renal function Creatinine 1.34 = Creatinine 0.79. Continue IV fluids. Replace phosphorus. // Polysubstance abuse Unclear when patient's last use of alcohol or illicit drugs was Urine drug screen positive for benzos, cocaine and opiates [facility] protocol Monitor for signs of withdrawal Head CT negative for acute findings Discharge Planning Discharge inpatient psychiatry where patient can get continued treatment for rhabdomyolysis, as well as suicidal ideation. Pt Condition on Discharge: Stable Discharge Disposition: Disc to Psych Care Fac Discharge Time: <= 30 minutes Discharge Instructions DIET: Follow Instructions for: Heart Healthy Diet Activities you can perform: Regular-No Restrictions Follow up Referrals: PCP Follow-up - 1 Week New Medications: Fluoxetine (Fluoxetine) 20 Mg Capsule 20 MG PO DAILY for Depression Control for 30 Days, #30 TAB Thiamine HCl (Gnp Vitamin B-1) 100 Mg Tab 100 MG PO DAILY for Alcohol Detox for 30 Days, #30 TAB Continued Medications: Buspirone (Buspirone) 15 Mg Tab 15 MG PO DAILY for Anxiety, TAB 0 Refills Lamotrigine (Lamictal) 25 Mg Tab 25 MG PO BID for Control Seizures, #60 TAB 0 Refills Discontinued Medications: Dicyclomine (Bentyl) 10 Mg Cap 10 MG PO QID for Bowel Management, #21 CAP 0 Refills Ondansetron Odt (Zofran Odt) 4 Mg Tab 4 MG SL Q6HR PRN for Nausea/Vomiting, #30 TAB 0 Refills Jerry Peraza MD May 03, 2018 14:02
== END 2018-05-03 13:12 ==
LOC: NEDAMB 19:47 → NEDA 23:25 → UNDOADMIN 23:25 → INTOOBSV 05-02 00:51 → NEDA 05-02 00:51 → NEPHCDU 05-02 01:11
PROVIDERS: ADMIT Internal Medicine; ATTEND Internal Medicine
DX: M62.82 Rhabdomyolysis (principal); F14.10 Cocaine abuse, uncomplicated; F31.31 Bipolar disorder, current episode depressed, mild; M25.512 Pain in left shoulder; M25.511 Pain in right shoulder; X83.8XXA Intentional self-harm by other specified means, initial encounter; G89.29 Other chronic pain; S00.81XA Abrasion of other part of head, initial encounter; Z91.81 History of falling; Z78.1 Physical restraint status; F41.9 Anxiety disorder, unspecified; F11.20 Opioid dependence, uncomplicated; I25.2 Old myocardial infarction; J44.9 Chronic obstructive pulmonary disease, unspecified
CPT/HCPCS: 71045; 80048; 80307; 82550; 82552; 84484; 85025; 93005; 96361; 99285; J7040; 70450; 72125; 80069; 83735; 96365; 96375; G0378; J0610; J1644; J2060; J2270; J7030

== ENCOUNTER 2018-05-03 12:39 | Inpatient (IN) | payer OTHER, MEDICARE ==
[~2018-05-03 12:39] MED LIST changes: +FLUO20CA12 PO; +THIA100 PO
[2018-05-03] MEDS ORDERED: MAGNESIUM HYDROXIDE SUSP 30 ML CUP PO PRN (15:00)
[2018-05-03] MEDS ORDERED: LORazepam 2 MG/ML VIAL IM PRN ×2 (15:00)
[2018-05-03] MEDS: NICOTINE 21 MG/24 HR PATCH T-DERMAL SCH (15:00)
[2018-05-03] MEDS ORDERED: ALUMINUM/MAGNESIUM/SIMETH 30 ML CUP PO PRN (15:00)
[2018-05-03] MEDS: busPIRone HCL 5 MG TAB PO SCH (15:00)
[2018-05-03] MEDS ORDERED: LORazepam 0.5 MG TAB PO PRN (15:00)
[2018-05-03] MEDS: ACETAMINOPHEN 325 MG TAB PO PRN (16:02)
[2018-05-03] MEDS: LORazepam 1 MG TAB PO PRN ×2 (16:02→20:39)
[2018-05-03 17:44] VITALS: BP 113/70; PULSE 87; RESP 18; TEMP 97.9; O2SAT 96
[2018-05-03] MEDS: SODIUM CHLOR 0.9% 1000 ML INJ 1,000 ML IV SCH (19:45)
[2018-05-03] MEDS: lamoTRIgine 25 MG TAB PO SCH (20:39)
[2018-05-03] MEDS: REMOVE OLD NICODERM (NICOTINE) PATCH T-DERMAL SCH (20:39)
[2018-05-04] MEDS: ACETAMINOPHEN 325 MG TAB PO PRN ×2 (01:01→19:56)
[2018-05-04] MEDS: SODIUM CHLOR 0.9% 1000 ML INJ 1,000 ML IV SCH ×4 (02:25→22:25)
[2018-05-04 06:09] VITALS: BP 179/105; PULSE 88; RESP 18; TEMP 98.1; O2SAT 95
[2018-05-04] MEDS: lamoTRIgine 25 MG TAB PO SCH ×2 (08:05→19:56)
[2018-05-04] MEDS: busPIRone HCL 5 MG TAB PO SCH (08:05)
[2018-05-04] MEDS: FLUoxetine HCL 20 MG CAP PO SCH (08:06)
[2018-05-04] MEDS: NICOTINE 21 MG/24 HR PATCH T-DERMAL SCH (08:06)
[2018-05-04 10:34] LABS: BICARBONATE 23.8 MEQ/L (21.0-32.0); BLOOD UREA NITROGEN 12 MG/DL (7-18); CALCIUM 7.6 MG/DL (8.5-10.1); CHLORIDE 112 MEQ/L (98-107); CHOLESTEROL 101 MG/DL (120-200); CREATININE 0.84 MG/DL (0.60-1.30); GLOMERULAR FILTRATION RATE 95 ML/MIN (>89); GLUCOSE,RANDOM 109 MG/DL (74-106); SODIUM (NA) 145 MEQ/L (136-145); TRIGLYCERIDES 167 MG/DL (42-150)
[2018-05-04 10:38] LABS: CHOLESTEROL/ HDL RATIO 6.35 RATIO; HDL CHOLESTEROL 15.9 MG/DL (40.0-60.0); LDL CHOLESTEROL 52 MG/DL (0-99)
[2018-05-04] MEDS: LORazepam 1 MG TAB PO PRN (11:42)
[2018-05-04 13:59] VITALS: BP 127/71
[2018-05-04] MEDS ORDERED: FLUMAZENIL 0.5 MG/5 ML VIAL IV PUSH PRN (14:15)
[2018-05-04] MEDS ORDERED: LORazepam 2 MG/ML VIAL IV PUSH PRN ×4 (14:15)
[2018-05-04] MEDS ORDERED: LORazepam 1 MG TAB PO PRN (15:00)
[2018-05-04] MEDS ORDERED: LORazepam 2 MG/ML VIAL IM PRN ×2 (15:00)
[2018-05-04] MEDS ORDERED: LORazepam 0.5 MG TAB PO PRN (15:00)
--- NOTE | 2018-05-04 15:27 | HHI.HP ---
Provisional Diagnosis Admission Date May 03, 2018 at 13:16 [place] I. Bipolar disorder depressed, cocaine abuse Certification of Person's Competence To Provide Express and Informed Consent I have personally examined Houston Gonzales , a person being served at [facility] on, May 04, 2018 15:19. Express and informed consent means consent voluntarily given in writing, by a competent person, after sufficient explanation and disclosure of the subject matter involved to enable the person to make a knowing and willful decision without any element of force, fraud, deceit, duress, or other form of constraint or coercion. This person is 18 years of age or older, is not now known to be incompetent to consent to treatment with a guardian advocate, and does not have a health care surrogate or proxy currently making medical treatment decisions. I have found this person to be one of the following: [] Competent to provide express and informed consent, as defined above, for voluntary admission to this facility and is competent to provide express and informed consent for treatment. He/she has the consistent capacity to make well reasoned, willful, and knowing decisions concerning his or her medical or mental health treatment. The person fully and consistently understands the purpose of the admission for examination/placement and is fully capable of personally exercising all rights assured under [place] [] Incompetent to provide express and informed consent to voluntary admission, and this is incompetent to provide express and informed consent to treatment. The person must be transferred to involuntary status and a petition for a guardian advocate filed with the Circuit Court. [xxx] Refusing to provide express and informed consent to voluntary admission but is competent to provide express and informed consent for treatment. The person must be discharged or transferred to involuntary status. Form shall be completed within 24 hours of a person's arrival at the receiving facility and filed in the clinical record of each person: 1. Admitted on a voluntary basis 2. Permitted to provide express and informed consent to his/her own treatment 3. Allowed to transfer from involuntary to voluntary status 4. Prior to permitting a person to consent to his or her own treatment after having been previously found incompetent to consent to treatment. History of Present Illness Capacity: Lacks Capacity (Patient lacks capacity to sign for admission patient has capacity to sign for medication) HPI Patient is 48-year-old white male initially came to the emergency department about the complaints of chest pain chronic pain. He was assessed by the emergency department physician's and there is consideration of discharging him that he had complained of increased depression with vague suicidal ideation and possible attempts to hang himself. Patient seen by Dr. Valadez recommended further assessment transferred to [facility] for medically cleared. Urine toxicology drawn at that time was positive for opiates and benzodiazepines and cocaine. Patient seen by me on the unit with floor staff. Patient is alert and oriented white male stockily built with multiple tattoos over his torso and extremities. Focusing on his somatic issues complaining of severe unremitting pain in both shoulders, and his back giving the litany of various back injuries going back many years. He acknowledges various incarcerations, he acknowledges various mental health issues. He acknowledges detox and rehab for very substance use though he acknowledges his favorites are opiates and benzodiazepines. He states he goes from methadone clinic for pain he is on 35 mg of methadone daily. He states she sees Dr. Bower who prescribes him Xanax and various other medications. At this time patient does meet criteria for further assessment under the Perera act L the first opinion request second opinion I will ask for hospitalist consultation with this gentleman also. We will start him on theciwa protocol but refrained from other benzodiazepines or substances of abuse. Hope was to be a short stay we can return to the community though at this time he states he is homeless. He is somewhat vague about suicidality when asked today. He denies voices or visions Review of Systems Constitutional: DENIES: Diaphoretic episodes, Fatigue, Fever, Weight gain, Weight loss, Chills, Dizziness, Change in appetite, Night Sweats Endocrine: DENIES: Heat/cold intolerance, Polydipsia, Polyuria, Polyphagia Eyes: DENIES: Blurred vision, Diplopia, Eye inflammation, Eye pain, Vision loss , Photosensitivity, Double Vision Ears, nose, mouth, throat: DENIES: Tinnitus, Hearing loss, Vertigo, Nasal discharge, Oral lesions, Throat pain, Hoarseness, Ear Pain, Running Nose, Epistaxis, Sinus Pain, Toothache, Odynophagia Respiratory: DENIES: Apneas, Cough, Snoring, Wheezing, Hemoptysis, Sputum production, Shortness of breath Cardiovascular: DENIES: Chest pain, Palpitations, Syncope, Dyspnea on Exertion , PND, Lower Extremity Edema, Orthopnea, Claudication Gastrointestinal: DENIES: Abdominal pain, Black stools, Bloody stools, Constipation, Diarrhea, Nausea, Vomiting, Difficulty Swallowing, Anorexia Genitourinary: DENIES: Sexual dysfunction, Urinary frequency, Urinary incontinence, Urgency, Hematuria, Dysuria, Nocturia, Penile Discharge, Testicular Pain, Testicular Swelling Musculoskeletal: COMPLAINS OF: Joint pain, Muscle aches, Back pain (Shoulder pain) Integumentary: DENIES: Abnormal pigmentation, Nail changes, Pruritus, Rash Hematologic/lymphatic: DENIES: Bruising, Lymphadenopathy Immunologic/allergic: DENIES: Eczema, Urticaria Neurologic: DENIES: Abnormal gait, Headache, Localized weakness, Paresthesias, Seizures, Speech Problems, Tremor, Poor Balance Psychiatric: COMPLAINS OF: Depression, Suicidal Ideation (Denies at this time) Past Psych History Psychological trauma history Patient vague about past history Violence risk - others (6 mos) Patient has a history of incarcerations for assaultive behavior Violence risk - self (6 mos) Patient states vague suicidal ideation Substance Abuse History Drugs/Alcohol past 12 months Patient history of multiple drug abuse Past Family Social History Coded Allergies: haloperidol (Unverified Allergy, Severe, "LOCK JAW", 05/01/18) ketorolac (Unverified Allergy, Severe, RASH, 05/01/18) penicillin G (Unverified Allergy, Severe, RASH, 05/01/18) ziprasidone (Unverified Allergy, Severe, "LOCK JAW", 05/01/18) *MDRO Multi-Drug Resistant Organism (Verified Adverse Reaction, Unknown, ) 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) Active Scripts Thiamine HCl (Gnp Vitamin B-1) 100 Mg Tab, 100 MG PO DAILY for Alcohol Detox for 30 Days, #30 TAB Prov:Sera Andrew PA-C 05/03/18 Fluoxetine (Fluoxetine) 20 Mg Capsule, 20 MG PO DAILY for Depression Control for 30 Days, #30 TAB Prov:Sera Andrew PA-C 05/03/18 Reported Medications Buspirone (Buspirone) 15 Mg Tab, 15 MG PO DAILY for Anxiety, TAB 0 Refills 12/02/17 Lamotrigine (Lamictal) 25 Mg Tab, 25 MG PO BID for Control Seizures, #60 TAB 0 Refills 10/04/16 Discontinued Scripts Ondansetron Odt (Zofran Odt) 4 Mg Tab, 4 MG SL Q6HR Y for Nausea/Vomiting, #30 TAB 0 Refills Prov:Brandyn Taylor MD 12/02/17 Dicyclomine (Bentyl) 10 Mg Cap, 10 MG PO QID for Bowel Management, #21 CAP 0 Refills Prov:Brandyn Taylor MD 12/02/17 Current Medications Medications (Trade) Dose Ordered Sig/Mikayla Route Start Time Stop Time Status Last Admin (Tylenol) 650 mg Q4H PRN PO 05/03/18 15:00 05/04/18 01:01 (Milk Of Magnesia Liq) 30 ml DAILY PRN PO 05/03/18 15:00 (Mag-Al Plus Susp Liq) 30 ml Q6H PRN PO 05/03/18 15:00 (Habitrol 21 Mg Patch.24 Hr) 1 patch DAILY T-DERMAL 05/03/18 15:00 05/04/18 08:06 (Buspar) 15 mg DAILY PO 05/03/18 15:00 05/04/18 08:05 (PROzac) 20 mg DAILY PO 05/04/18 09:00 05/04/18 08:06 (LaMICtal) 25 mg BID PO 05/03/18 21:00 05/04/18 08:05 Miscellaneous Information 1 HS T-DERMAL 05/03/18 21:00 Sodium Chloride 1,000 ml @ 150 mls/hr Q6H40M IV 05/03/18 19:45 05/04/18 08:06 (Romazicon Inj) 0.2 mg Q1M PRN IV PUSH 05/04/18 14:15 (Ativan) 1 mg Q4H PRN PO 05/04/18 14:15 (Ativan Inj) 1 mg Q4H PRN IV PUSH 05/04/18 14:15 (Ativan) 2 mg Q2H PRN PO 05/04/18 14:15 (Ativan Inj) 2 mg Q2H PRN IV PUSH 05/04/18 14:15 (Ativan Inj) 2 mg Q1H PRN IV PUSH 05/04/18 14:15 (Ativan Inj) 2 mg Q15M PRN IV PUSH 05/04/18 14:15 (Ativan) 1 mg Q6H PRN PO 05/04/18 15:00 (Ativan Inj) 1 mg Q6H PRN IM 05/04/18 15:00 Family Psych History Patient denies Social History Patient homeless at this time states he has no support group Patient's Strengths (min. 2) Patient verbal able access healthcare Physical Exam Patient medically cleared ED at the present time patient sitting quietly in his room complaining of pain in both shoulders voices no acute distress he is in no respiratory distress, no complaints of abdominal pain patient moving all 4 extremities low rubbing and holding at both shoulders Vital Signs Vital Signs Date Time Temp Pulse Resp B/P (MAP) Pulse Ox O2 Delivery O2 Flow Rate FiO2 05/04/18 13:59 127/71 (89) 05/04/18 06:09 98.1 88 18 95 I/O 05/04/18 05/04/18 05/05/18 08:00 16:00 00:00 Intake Total 840 ml Balance 840 ml Lab Results Test 05/04/18 09:25 Blood Urea Nitrogen 12 MG/DL Creatinine 0.84 MG/DL Random Glucose 109 MG/DL Calcium Level 7.6 MG/DL Sodium Level 145 MEQ/L Potassium Level 3.8 MEQ/L Chloride Level 112 MEQ/L Carbon Dioxide Level 23.8 MEQ/L Anion Gap 9 MEQ/L Estimat Glomerular Filtration Rate 95 ML/MIN Triglycerides Level 167 MG/DL Cholesterol Level 101 MG/DL LDL Cholesterol 52 MG/DL HDL Cholesterol 15.9 MG/DL Cholesterol/HDL Ratio 6.35 RATIO Mental Status Examination Appearance: Appropriate Consciousness: Alert Orientation: x4 Motor Activity: Normal gait Speech: Unremarkable Language: Adequate, Perseveration Fund of Knowledge: Adequate Attention and Concentration: Adequate Memory: Unremarkable Mood: Other (Euthymic to mildly dysphoric and mildly irritable) Affect: Other (Slight increased range and intensity) Thought Process & Associations: Intact Thought Content: Appropriate Hallucination Type: None Delusion Type: Other (Somewhat vigilant) Suicidal Ideation: No (Denies at this time) Suicidal Plan: No Suicidal Intention: No Homicidal Ideation: No Homicidal Plan: No Homicidal Intention: No Insight: Poor Judgment: Poor Assessment & Plan Problem List: (1) Bipolar depression ICD Codes: F31.30 - Bipolar disorder, current episode depressed, mild or moderate severity, unspecified (2) Cocaine abuse ICD Codes: F14.10 - Cocaine abuse, uncomplicated Assessment & Plan Estimated LOS: days 3-5 days patient meets Perera criteria will do first opinion request second opinion we will have hospitalist consult will S. We are verifying methadone dose. We will continue also with the ciid protocol Discharge Planning To be determined Request HC Surrog/Guard Advoc?: No Jose F Silverio MD May 04, 2018 15:27
[2018-05-04 15:43] LABS: HEMOGLOBIN A1C 5.5 % (4.3-6.0)
[2018-05-04] MEDS: IBUPROFEN 600 MG TAB PO PRN (16:11)
--- NOTE | 2018-05-04 17:24 | PD.CONS ---
HPI Service [facility] Hospitalists Consult Requested By Psychiatry Reason for Consult Medical management Primary Care Physician No Primary Care Physician Diagnoses: History of Present Illness 52-year-old man for past medical history of anxiety, initially admitting on May 02, 2018 secondary to chest pain to hospitalist with consultation to psychiatry secondary to suicidal ideation. While on the medical osman, patient was treated for rhabdomyolysis with IV fluid and did ruled out per ACS protocol with serial cardiac enzyme and EKG secondary to chest pain. Patient was discharged to inpatient psychiatry, and [facility] has been consulted for medical management. Patient continued to complain of left shoulder pain, which he sustained status post a mechanical fall 3 days ago. Review of Systems Except as stated in HPI: all other systems reviewed are Neg Past Family Social History Allergies: Coded Allergies: haloperidol (Unverified Allergy, Severe, "LOCK JAW", 05/01/18) ketorolac (Unverified Allergy, Severe, RASH, 05/01/18) penicillin G (Unverified Allergy, Severe, RASH, 05/01/18) ziprasidone (Unverified Allergy, Severe, "LOCK JAW", 05/01/18) *MDRO Multi-Drug Resistant Organism (Verified Adverse Reaction, Unknown, ) 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) Past Medical History Alcohol abuse Cocaine abuse Anxiety Past Surgical History Rotator cuff 2 Laminectomy 2 Thumb surgery Reported Medications See EMR Family History Negative for CAD/DM Social History Reports alcohol, cocaine use, but denies tobacco and states he has a remote history of drugs with last use 8 years ago. Physical Exam Vital Signs Vital Signs Date Time Temp Pulse Resp B/P (MAP) Pulse Ox O2 Delivery O2 Flow Rate FiO2 05/04/18 13:59 127/71 (89) 05/04/18 06:09 98.1 88 18 179/105 (129) 95 05/03/18 17:44 97.9 87 18 113/70 (84) 96 Physical Exam GENERAL: This is a well-nourished, well-developed patient, in no apparent distress. SKIN: No rashes, ecchymoses or lesions. Cool and dry. HEAD: Atraumatic. Normocephalic. No temporal or scalp tenderness. EYES: Pupils equal round and reactive. Extraocular motions intact. No scleral icterus. No injection or drainage. ENT: Nose without bleeding, purulent drainage or septal hematoma. Throat without erythema, tonsillar hypertrophy or exudate. Uvula midline. Airway patent. NECK: Trachea midline. No JVD or lymphadenopathy. Supple, nontender, no meningeal signs. CARDIOVASCULAR: Regular rate and rhythm without murmurs, gallops, or rubs. RESPIRATORY: Clear to auscultation. Breath sounds equal bilaterally. No wheezes , rales, or rhonchi. GASTROINTESTINAL: Abdomen soft, non-tender, nondistended. No hepato-splenomegaly , or palpable masses. No guarding. MUSCULOSKELETAL: Extremities without clubbing, cyanosis, or edema. No joint tenderness, effusion, or edema noted. No calf tenderness. Negative Homans sign bilaterally. NEUROLOGICAL: Awake and alert. Cranial nerves II through XII intact. Motor and sensory grossly within normal limits. Five out of 5 muscle strength in all muscle groups. Limited range of motion left upper extremity. normal speech. Laboratory Laboratory Tests Test 05/04/18 09:25 Blood Urea Nitrogen 12 Creatinine 0.84 Random Glucose 109 Calcium Level 7.6 Sodium Level 145 Potassium Level 3.8 Chloride Level 112 Carbon Dioxide Level 23.8 Anion Gap 9 Estimat Glomerular Filtration Rate 95 Triglycerides Level 167 Cholesterol Level 101 LDL Cholesterol 52 HDL Cholesterol 15.9 Cholesterol/HDL Ratio 6.35 Result Diagram: 05/04/18 0925 Assessment and Plan Assessment and Plan 52-year-old man with Suicidal ideation Acute mood disorder Management per psychiatry Rhabdomyolysis Continue IV fluid hydration Monitor CK Left shoulder pain Patient with prior history of rotator cuff injury Check left shoulder x-ray Continue with ibuprofen Polysubstance abuse Continue with CIWA protocol Verify with methadone clinic if patient is indeed on any prescribed methadone DVT prophylaxis: Encourage ambulation Thank you for this consultation Code Status Full code Discussed Condition With Patient,Jerrell Briggs MD May 04, 2018 17:23
[2018-05-04 18:47] VITALS: BP 138/92; PULSE 87; RESP 17; TEMP 97.9; O2SAT 96
[2018-05-04] MEDS: REMOVE OLD NICODERM (NICOTINE) PATCH T-DERMAL SCH (21:00)
[2018-05-04] MEDS ORDERED: CYCLOBENZAPRINE HCL 10 MG TAB PO ONE (23:00)
[2018-05-05] MEDS: IBUPROFEN 600 MG TAB PO PRN ×2 (02:51→21:37)
[2018-05-05] MEDS: SODIUM CHLOR 0.9% 1000 ML INJ 1,000 ML IV SCH ×3 (05:05→18:25)
[2018-05-05 06:00] VITALS: BP 138/101; PULSE 82; RESP 18; TEMP 97.5; O2SAT 97
[2018-05-05] MEDS: LORazepam 1 MG TAB PO PRN ×4 (08:35→15:52)
[2018-05-05] MEDS: ACETAMINOPHEN 325 MG TAB PO PRN ×2 (08:35→15:51)
[2018-05-05] MEDS: lamoTRIgine 25 MG TAB PO SCH ×3 (08:37→20:32)
[2018-05-05] MEDS: busPIRone HCL 5 MG TAB PO SCH ×2 (08:37→11:57)
[2018-05-05] MEDS: FLUoxetine HCL 20 MG CAP PO SCH ×2 (08:38→11:58)
[2018-05-05] MEDS: NICOTINE 21 MG/24 HR PATCH T-DERMAL SCH (08:42)
--- NOTE | 2018-05-05 10:51 | HHI.PR ---
Objective Vitals Vital Signs Date Time Temp Pulse Resp B/P (MAP) Pulse Ox O2 Delivery O2 Flow Rate FiO2 05/05/18 06:00 97.5 82 18 138/101 (113) 97 05/04/18 18:47 97.9 87 17 138/92 (107) 96 05/04/18 13:59 127/71 (89) I/O 05/04/18 05/04/18 05/04/18 05/05/18 05/05/18 05/05/18 07:00 15:00 23:00 07:00 15:00 23:00 Intake Total 840 ml 4792 ml 0 ml 480 ml Balance 840 ml 4792 ml 0 ml 480 ml Intake Oral 840 ml 960 ml 0 ml 480 ml IV Total 3832 ml # Voids 2 4 Result Diagram: 05/04/18 0925 A/P Assessment and Plan Rhabdomyolysis Awaiting repeat CPK If there is a downward trend no further need for monitoring or management and medical team will sign off at that time and patient would be safe for transfer off medical floor. Eduardo Bocanegra MD May 05, 2018 10:51
--- NOTE | 2018-05-05 16:22 | HHI.PYPN ---
Subjective Remarks This is a request for second opinion. Admission note was reviewed and I agree with the history. Patient was seen and case was discussed with nursing. Patient admits to suicidal ideation before admission. He was positive for various substances upon admission but claims he was not using. He continues on the ciwa and it is 3. Continues to voice vague passive suicidal ideation with no intent or plan. Compliant with medications. Describes various stressors such as the and of a 7 year relationship and the of his father 7 months ago Mental Status Examination Appearance: Appropriate Consciousness: Alert Orientation: x4 Motor Activity: Normal gait Speech: Unremarkable Language: Adequate Fund of Knowledge: Adequate Attention and Concentration: Adequate Memory: Unremarkable Mood: Sad Affect: Other (Slight increased range and intensity) Thought Process & Associations: Intact Thought Content: Appropriate Hallucination Type: None Delusion Type: Other (Somewhat vigilant) Suicidal Ideation: No (Denies at this time) Suicidal Plan: No Suicidal Intention: No Homicidal Ideation: No Homicidal Plan: No Homicidal Intention: No Insight: Poor Judgment: Poor Results Labs Date/Time Source Procedure Growth Status 05/05/18 14:42 Wound Skin Gram Stain Pending Received 05/05/18 14:42 Wound Skin Wound Culture Pending Received Vitals/IOs Vital Signs Date Time Temp Pulse Resp B/P (MAP) Pulse Ox O2 Delivery O2 Flow Rate FiO2 05/05/18 06:00 97.5 82 18 138/101 (113) 97 Intake and Output 05/05/18 05/05/18 05/06/18 08:00 16:00 00:00 Intake Total 480 ml 1440 ml Balance 480 ml 1440 ml Assessment & Plan Problem List: (1) Bipolar depression ICD Codes: F31.30 - Bipolar disorder, current episode depressed, mild or moderate severity, unspecified (2) Cocaine abuse ICD Codes: F14.10 - Cocaine abuse, uncomplicated Assessment & Plan I agree with the first opinion to continue petition. Criteria include suicidal ideation Justification for Cont. Inpt. Patient would decompensate in a less restrictive setting Request HC Surrog/Guard Advoc?: Everette Dumont DO May 05, 2018 16:22
[2018-05-05] MEDS: LORazepam 2 MG TAB PO PRN ×3 (17:56→23:00)
[2018-05-05 18:02] VITALS: BP 138/98; PULSE 82; RESP 18; TEMP 98.7; O2SAT 97
[2018-05-05] MEDS: REMOVE OLD NICODERM (NICOTINE) PATCH T-DERMAL SCH (20:32)
[2018-05-05 20:57] LABS: AUTOMATED NEUTROPHIL # 3.5 TH/MM3 (1.8-7.7); BASOPHIL % 0.7 % (0.0-2.0); EOSINOPHIL # 0.2 TH/MM3 (0-0.4); EOSINOPHIL % 3.3 % (0.0-4.0); HEMATOCRIT 32.9 % (39.0-51.0); HEMOGLOBIN 11.2 GM/DL (13.0-17.0); LYMPH % 27.3 % (9.0-44.0); LYMPHOCYTE # 1.6 TH/MM3 (1.0-4.8); MEAN CELL VOLUME 89.5 FL (80.0-100.0); MEAN CORPUSCULAR HEMOGLOBIN 30.3 PG (27.0-34.0); MEAN CORPUSCULAR HGB CONC 33.9 % (32.0-36.0); MEAN PLATELET VOLUME 7.6 FL (7.0-11.0); MONO % 8.8 % (0.0-8.0); MONOCYTE # 0.5 TH/MM3 (0-0.9); NEUT % 59.9 % (16.0-70.0); PLATELET COUNT 269 TH/MM3 (150-450); RED BLOOD COUNT 3.68 MIL/MM3 (4.50-5.90); RED CELL DISTRIBUTION WIDTH 14.8 % (11.6-17.2); WHITE BLOOD COUNT 5.8 TH/MM3 (4.0-11.0)
[2018-05-05 21:18] LABS: ALBUMIN 2.3 GM/DL (3.4-5.0); AST (GOT) 118 U/L (15-37); BICARBONATE 22.3 MEQ/L (21.0-32.0); BLOOD UREA NITROGEN 13 MG/DL (7-18); CALCIUM 7.6 MG/DL (8.5-10.1); CHLORIDE 110 MEQ/L (98-107); CREATININE 0.96 MG/DL (0.60-1.30); GLOMERULAR FILTRATION RATE 82 ML/MIN (>89); GLUCOSE,RANDOM 103 MG/DL (74-106); SODIUM (NA) 143 MEQ/L (136-145)
[2018-05-05 21:33] LABS: ALKALINE PHOSPHATASE 69 U/L (45-117); ALT (GPT) 84 U/L (12-78); TOTAL BILIRUBIN ADULT 0.3 MG/DL (0.2-1.0); TOTAL PROTEIN 5.3 GM/DL (6.4-8.2)
[2018-05-06] MEDS: SODIUM CHLOR 0.9% 1000 ML INJ 1,000 ML IV SCH ×2 (01:05→07:45)
[2018-05-06] MEDS: LORazepam 1 MG TAB PO PRN ×2 (04:23→08:08)
[2018-05-06] MEDS: ACETAMINOPHEN 325 MG TAB PO PRN (04:49)
[2018-05-06 05:59] VITALS: BP 170/72; PULSE 86; RESP 18; TEMP 97.5; O2SAT 97
[2018-05-06] MEDS: lamoTRIgine 25 MG TAB PO SCH ×2 (08:08→19:39)
[2018-05-06] MEDS: NICOTINE 21 MG/24 HR PATCH T-DERMAL SCH (08:08)
[2018-05-06] MEDS: FLUoxetine HCL 20 MG CAP PO SCH (08:08)
[2018-05-06] MEDS: busPIRone HCL 5 MG TAB PO SCH (08:12)
--- NOTE | 2018-05-06 10:09 | HHI.PR ---
Subjective Remarks Patient complains of left shoulder pain today. He says his pain started on his left shoulder after he fell head trauma at that shoulder. CPK is decreasing with IV hydration. Objective Vital Signs Date Time Temp Pulse Resp B/P (MAP) Pulse Ox O2 Delivery O2 Flow Rate FiO2 05/06/18 05:59 97.5 86 18 170/72 (104) 97 05/05/18 18:02 98.7 82 18 138/98 (111) 97 I/O 05/05/18 05/05/18 05/05/18 05/06/18 05/06/18 05/06/18 07:00 15:00 23:00 07:00 15:00 23:00 Intake Total 0 ml 1920 ml 960 ml 0 ml Balance 0 ml 1920 ml 960 ml 0 ml Intake Oral 0 ml 1920 ml 960 ml 0 ml # Voids 4 1 3 2 Result Diagram: 05/05/18201905/05/182019 Objective Remarks GENERAL: NAD, A&Ox3 HEAD: Normocephalic. NECK: Supple, trachea midline. No lymphadenopathy. EYES: No scleral icterus. No injection or drainage. CARDIOVASCULAR: Regular rate and rhythm without murmurs, gallops, or rubs. RESPIRATORY: Breath sounds equal bilaterally. No accessory muscle use. GASTROINTESTINAL: Abdomen soft, non-tender, nondistended. MUSCULOSKELETAL: No cyanosis, or edema. SKIN: Warm and dry. Numerous bruises. NEURO: No focal neurological deficitis. A/P Assessment and Plan 52-year-old man admitted secondary to suicidal ideations, with rhabdomyolysis after trauma Suicidal ideation Acute mood disorder Management per psychiatry Rhabdomyolysis Continue IV hydration Monitor CPK Left shoulder pain Obtain shoulder x-ray Polysubstance abuse Continue CIWA protocol DVT prophylaxis Patient is ambulatory Eduardo Bocanegra MD May 06, 2018 10:09
--- NOTE | 2018-05-06 11:19 | RADRPT ---
EXAM DATE: 05/06/2018 11:09 AM EDT AGE/SEX: 52 years / Male INDICATIONS: Pain. Fall. CLINICAL DATA: This is the patient's initial encounter. Patient reports that signs and symptoms have been present for 2 days and indicates a pain score of 8/10. MEDICAL/SURGICAL HISTORY: . Hepatitis C. Chronic obstructive pulmonary disease. Substance abuse . None. COMPARISON: No prior exams available for comparison. FINDINGS: 4 views of the left shoulder demonstrate no fracture or dislocation. The acromioclavicular joint is i ntact. No soft tissue abnormality is identified. Visualized portions of the left lung are clear. No displaced rib fracture is seen. CONCLUSION: No acute left shoulder abnormality is identified. Electronically signed by: Jose F Chapman MD 05/06/2018 11:18 AM EDT
[2018-05-06] MEDS: IBUPROFEN 600 MG TAB PO PRN ×2 (11:30→19:51)
[2018-05-06] MEDS: LORazepam 2 MG TAB PO PRN (11:43)
--- NOTE | 2018-05-06 15:48 | HHI.PYPN ---
Subjective Remarks The patient was seen today for psychiatric reevaluation. Patient reports feeling a little bit better, very focused in somatic complaint and pains. He reports anxiety, requesting to have his benzodiazepine increased. Complaining of opiate withdrawal also. He denies suicidal and homicidal ideation, he denies visual and auditory hallucinations. Mental Status Examination Appearance: Appropriate Consciousness: Alert Orientation: x4 Motor Activity: Normal gait Speech: Unremarkable Language: Adequate Fund of Knowledge: Adequate Attention and Concentration: Adequate Memory: Unremarkable Mood: Sad Affect: Other (Slight increased range and intensity) Thought Process & Associations: Intact Thought Content: Appropriate Hallucination Type: None Delusion Type: Other (Somewhat vigilant) Suicidal Ideation: No (Denies at this time) Suicidal Plan: No Suicidal Intention: No Homicidal Ideation: No Homicidal Plan: No Homicidal Intention: No Insight: Poor Judgment: Poor Results Labs Test 05/05/18 20:20 05/06/18 14:10 White Blood Count 5.8 TH/MM3 Red Blood Count 3.68 MIL/MM3 Hemoglobin 11.2 GM/DL Hematocrit 32.9 % Mean Corpuscular Volume 89.5 FL Mean Corpuscular Hemoglobin 30.3 PG Mean Corpuscular Hemoglobin Concent 33.9 % Red Cell Distribution Width 14.8 % Platelet Count 269 TH/MM3 Mean Platelet Volume 7.6 FL Neutrophils (%) (Auto) 59.9 % Lymphocytes (%) (Auto) 27.3 % Monocytes (%) (Auto) 8.8 % Eosinophils (%) (Auto) 3.3 % Basophils (%) (Auto) 0.7 % Neutrophils # (Auto) 3.5 TH/MM3 Lymphocytes # (Auto) 1.6 TH/MM3 Monocytes # (Auto) 0.5 TH/MM3 Eosinophils # (Auto) 0.2 TH/MM3 Basophils # (Auto) 0.0 TH/MM3 CBC Comment DIFF FINAL Differential Comment Blood Urea Nitrogen 13 MG/DL Creatinine 0.96 MG/DL Random Glucose 103 MG/DL Total Protein 5.3 GM/DL Albumin 2.3 GM/DL Calcium Level 7.6 MG/DL Alkaline Phosphatase 69 U/L Aspartate Amino Transf (AST/SGOT) 118 U/L Alanine Aminotransferase (ALT/SGPT) 84 U/L Total Bilirubin 0.3 MG/DL Sodium Level 143 MEQ/L Potassium Level 4.0 MEQ/L Chloride Level 110 MEQ/L Carbon Dioxide Level 22.3 MEQ/L Anion Gap 11 MEQ/L Estimat Glomerular Filtration Rate 82 ML/MIN Total Creatine Kinase 1589 U/L 1038 U/L Creatine Kinase MB 2.2 NG/ML Creatine Kinase MB % 0.1 % Date/Time Source Procedure Growth Status 05/05/18 14:42 Wound Skin Gram Stain - Final Resulted 05/05/18 14:42 Wound Skin Wound Culture - Preliminary Resulted Vitals/IOs Vital Signs Date Time Temp Pulse Resp B/P (MAP) Pulse Ox O2 Delivery O2 Flow Rate FiO2 05/06/18 05:59 97.5 86 18 170/72 (104) 97 Intake and Output 05/06/18 05/06/18 05/07/18 08:00 16:00 00:00 Intake Total 0 ml Balance 0 ml Assessment & Plan Problem List: (1) Bipolar depression ICD Codes: F31.30 - Bipolar disorder, current episode depressed, mild or moderate severity, unspecified Assessment & Plan: Patient quite focused in pain and narcotics. Reports anxiety and opiate withdrawal. Will medicate with clonidine 0.2 mg for symptoms of withdrawal. Continue current psychotropic regimen. (2) Cocaine abuse ICD Codes: F14.10 - Cocaine abuse, uncomplicated Assessment & Plan Estimated LOS: days Justification for Cont. Inpt. Patient has an elevated risk to decompensate at a lower level of care. Request HC Surrog/Guard Advoc?: Del Bergman MD May 06, 2018 15:48
[2018-05-06 17:59] VITALS: BP 131/79; PULSE 85; RESP 18; TEMP 98; O2SAT 98
[2018-05-06] MEDS: hydrOXYzine HCL 50 MG TAB PO PRN (19:39)
[2018-05-06] MEDS: REMOVE OLD NICODERM (NICOTINE) PATCH T-DERMAL SCH (19:45)
[2018-05-07] MEDS: LORazepam 1 MG TAB PO PRN (04:32)
[2018-05-07 04:59] VITALS: BP 115/71; PULSE 79; RESP 15; TEMP 98.7; O2SAT 94
[2018-05-07] MEDS: IBUPROFEN 600 MG TAB PO PRN ×2 (06:00→14:50)
[2018-05-07] MEDS: hydrOXYzine HCL 50 MG TAB PO PRN ×2 (06:00→14:06)
--- NOTE | 2018-05-07 08:48 | HHI.PR ---
Subjective Remarks Follow-up visit for suicidal ideation, rhabdomyolysis and left shoulder pain. Patient is seen and examined resting in bed comfortably in no acute distress. Patient continues to complain of left shoulder pain. He denies any fevers, chills, nausea, vomiting, diarrhea, shortness of breath, cough, chest pain or muscle aches. Urinating without difficulties eating and drinking. Objective Vitals Vital Signs Date Time Temp Pulse Resp B/P (MAP) Pulse Ox O2 Delivery O2 Flow Rate FiO2 05/07/18 04:59 98.7 79 15 115/71 (86) 94 05/06/18 17:59 98.0 85 18 131/79 (96) 98 I/O 05/06/18 05/06/18 05/06/18 05/07/18 05/07/18 05/07/18 07:00 15:00 23:00 07:00 15:00 23:00 Intake Total 0 ml 1680 ml 480 ml 240 ml Balance 0 ml 1680 ml 480 ml 240 ml Intake Oral 0 ml 1680 ml 480 ml 240 ml # Voids 2 4 2 Result Diagram: 05/05/18201905/05/182019 Imaging Last Impressions Shoulder X-Ray 05/06/18 0000 Signed Impressions: CONCLUSION: No acute left shoulder abnormality is identified. Objective Remarks GENERAL: Well-developed well-nourished male in no acute distress. HEAD: Normocephalic, scattered abrasions throughout his face open to air. NECK: Supple, trachea midline. EYES: No scleral icterus. No injection or drainage. CARDIOVASCULAR: Regular rate and rhythm without murmurs, gallops, or rubs. RESPIRATORY: Breath sounds equal bilaterally. No accessory muscle use. GASTROINTESTINAL: Abdomen soft, non-tender, nondistended. MUSCULOSKELETAL: No cyanosis, or edema. SKIN: Warm and dry. Numerous bruises. NEURO: Awake, alert, moving all extremities, no cranial nerve deficits noted, speech is clear. A/P Assessment and Plan 52-year-old man admitted secondary to suicidal ideations, with rhabdomyolysis after trauma Suicidal ideation Acute mood disorder -Management per psychiatry -Atrax 50 mg every 6 hours as needed, Prozac daily, Lamictal twice daily, and BuSpar daily Rhabdomyolysis -IV hydration completed -Pending CPK this morning Left shoulder pain -Left shoulder x-ray negative, continue as needed ibuprofen and Tylenol, will add Lidoderm patch Polysubstance abuse -Continue CIWA protocol DVT prophylaxis -Patient is ambulatory Discussed with patient. Sina Lin May 07, 2018 08:48
--- NOTE | 2018-05-07 08:55 | HHI.PYPN ---
Subjective Remarks Patient seen in his room with nurse Yonathan, patient laying flat in bed with the covers to his chin. Chart reviewed. Patient compliant medications, patient discussed with nurse. Patient laying quite still and in no apparent distress, staff states patient has been some subtle drug seeking behaviors. Patient denies suicidality homicidality voices or visions. Continues to focus on his chronic pain. Discussed this case with Counselor we need to encourage patient to explore sober living facilities. I feel that may be a degree of manipulation with this gentleman. Thus I will modify the [facility] protocol to discontinue the 2 mg dosages of Ativan also the 1 and 2 hour dosages leaving only the 1 mg 4 hour dosages available. Review of Systems Except as stated in HPI: all other systems reviewed are Neg Mental Status Examination Appearance: Appropriate Consciousness: Alert Orientation: x4 Motor Activity: Normal gait Speech: Unremarkable Language: Adequate Fund of Knowledge: Adequate Attention and Concentration: Adequate Memory: Unremarkable Mood: Sad Affect: Other (Slight increased range and intensity) Thought Process & Associations: Intact Thought Content: Appropriate Hallucination Type: None Delusion Type: Other (Somewhat vigilant) Suicidal Ideation: No (Denies at this time) Suicidal Plan: No Suicidal Intention: No Homicidal Ideation: No Homicidal Plan: No Homicidal Intention: No Insight: Poor Judgment: Poor Results Labs Test 05/06/18 14:10 Total Creatine Kinase 1038 U/L Creatine Kinase MB 2.1 NG/ML Creatine Kinase MB % 0.2 % Date/Time Source Procedure Growth Status 05/05/18 14:42 Wound Skin Gram Stain - Final Resulted 05/05/18 14:42 Wound Skin Wound Culture - Preliminary Resulted Vitals/IOs Vital Signs Date Time Temp Pulse Resp B/P (MAP) Pulse Ox O2 Delivery O2 Flow Rate FiO2 05/07/18 04:59 98.7 79 15 115/71 (86) 94 Intake and Output 05/07/18 05/07/18 05/08/18 08:00 16:00 00:00 Intake Total 720 ml Balance 720 ml Assessment & Plan Problem List: (1) Bipolar depression ICD Codes: F31.30 - Bipolar disorder, current episode depressed, mild or moderate severity, unspecified (2) Cocaine abuse ICD Codes: F14.10 - Cocaine abuse, uncomplicated Assessment & Plan Estimated LOS: days patient calm guarded O superficially cooperative denying suicidality homicidality voice or visions. She medication of ciwa above. Need to work finally patient the opportunity to go to sober living facility, and if he refuses at consider a homeless discharge Justification for Cont. Inpt. At this time patient would decompensate a place to a lower level of care Discharge Planning See above Request HC Surrog/Guard Advoc?: No Jose F Silverio MD May 07, 2018 08:55
[2018-05-07] MEDS ORDERED: FLUO20CA12 PO (09:38)
[2018-05-07] MEDS ORDERED: BUSP15TA PO (09:38)
[2018-05-07] MEDS ORDERED: THIA100 PO (09:38)
[2018-05-07] MEDS ORDERED: LAMO25 PO (09:38)
[2018-05-07] MEDS: busPIRone HCL 5 MG TAB PO SCH (09:39)
[2018-05-07] MEDS: FLUoxetine HCL 20 MG CAP PO SCH (09:39)
[2018-05-07] MEDS: lamoTRIgine 25 MG TAB PO SCH (09:39)
[2018-05-07] MEDS: NICOTINE 21 MG/24 HR PATCH T-DERMAL SCH (09:42)
[2018-05-07] MEDS ORDERED: LIDOCAINE HCL 5% PATCH T-DERMAL SCH (09:45)
--- NOTE | 2018-05-07 09:46 | HHI.DS ---
Psychiatry Discharge Summary Inpatient Psychiatric care?: Yes Advance Directive: No Reason Not Provided: papers given Mental Health AdvanceDirective: No Health Care Proxy: No Admission Admission Date May 03, 2018 at 13:16 Admission Diagnosis: (1) Bipolar depression ICD Code: F31.30 - Bipolar disorder, current episode depressed, mild or moderate severity, unspecified (2) Cocaine abuse ICD Code: F14.10 - Cocaine abuse, uncomplicated Brief History Patient is 48-year-old white male initially came to the emergency department about the complaints of chest pain chronic pain. He was assessed by the emergency department physician's and there is consideration of discharging him that he had complained of increased depression with vague suicidal ideation and possible attempts to hang himself. Patient seen by Dr. Valadez recommended further assessment transferred to [facility] for medically cleared. Urine toxicology drawn at that time was positive for opiates and benzodiazepines and cocaine. Patient seen by me on the unit with floor staff. Patient is alert and oriented white male stockily built with multiple tattoos over his torso and extremities. Focusing on his somatic issues complaining of severe unremitting pain in both shoulders, and his back giving the litany of various back injuries going back many years. He acknowledges various incarcerations, he acknowledges various mental health issues. He acknowledges detox and rehab for very substance use though he acknowledges his favorites are opiates and benzodiazepines. He states he goes from methadone clinic for pain he is on 35 mg of methadone daily. He states she sees Dr. Bower who prescribes him Xanax and various other medications. At this time patient does meet criteria for further assessment under the Perera act L the first opinion request second opinion I will ask for hospitalist consultation with this gentleman also. We will start him on theciwa protocol but refrained from other benzodiazepines or substances of abuse. Hope was to be a short stay we can return to the community though at this time he states he is homeless. He is somewhat vague about suicidality when asked today. He denies voices or visions Tobacco Use In Past 30 Days: 4 or Less Cigarettes/Day Alcohol Use: Never Hospital Course Alexander styles today made any progress note on this patient describing his behavior. I later talked with Katerina about finding this gentleman a sober living facility address his addictions. He seemed willing to do this. Katerina found the patient facility called [facility] in [place]. When she went into discussed this with him and tell him about placement he became quite angry. He sat up in bed was quite profane insulting to her throwing out the "F" word multiple times besides of epitaphs that are quite insulting and demeaning. He started screaming and yelling "who do you work for?" Katerina came to me explaining the situation I then went and said that his room also present in the room at that time were occupational therapist Rodney Wilkins nurse Yonathan along with Counselor patient continued to scream at me using the "F" word many times also called me an asshole and a motherfu--er, the a.m. a dumb sh-t, and Dr. Sathish Hagen good doctor. I attempted to explain to him for the second time in the morning that I responsibility was to find an appropriate placement and we did that. It is then his choice whether to accept that or to be discharged to himself. He became angrier refused to go to the placement. Less I will discharge patient today to himself. He will receive 10 days' worth of his scheduled medications but no benzodiazepines and no opiates. He may follow through with Dr. Begum. He also does have a pain doctor he can follow through with. I would recommend further substance abuse assessment through [facility] and absolute sobriety Results Blood Pressure 115 / 71 Vital Signs Date Time Temp Pulse Resp B/P (MAP) Pulse Ox O2 Delivery O2 Flow Rate FiO2 05/07/18 04:59 98.7 79 15 115/71 (86) 94 Laboratory Tests Test 05/05/18 20:20 05/06/18 14:10 Red Blood Count 3.68 MIL/MM3 (4.50-5.90) Hemoglobin 11.2 GM/DL (13.0-17.0) Hematocrit 32.9 % (39.0-51.0) Monocytes (%) (Auto) 8.8 % (0.0-8.0) Total Protein 5.3 GM/DL (6.4-8.2) Albumin 2.3 GM/DL (3.4-5.0) Calcium Level 7.6 MG/DL (8.5-10.1) Aspartate Amino Transf (AST/SGOT) 118 U/L (15-37) Alanine Aminotransferase (ALT/SGPT) 84 U/L (12-78) Chloride Level 110 MEQ/L (98-107) Estimat Glomerular Filtration Rate 82 ML/MIN (>89) Total Creatine Kinase 1589 U/L (39-308) 1038 U/L (39-308) Laboratory Results Test 05/04/18 09:25 Cholesterol Level 101 MG/DL (120-200) HDL Cholesterol 15.9 MG/DL (40.0-60.0) Hemoglobin A1c 5.5 % (4.3-6.0) LDL Cholesterol 52 MG/DL (0-99) Triglycerides Level 167 MG/DL (42-150) Summary of Procedures None done Imaging Last Impressions Shoulder X-Ray 05/06/18 0000 Signed Impressions: CONCLUSION: No acute left shoulder abnormality is identified. Pending results at discharge: No Medications # of Antipsychotic meds at D/C: 0 Approp Antipsych med options 1 - Minimum of three failed multiple trials of monotherapy. 2 - Documented plan to taper to monotherapy due to previous use of multiple meds OR cross-taper in progress at D/C. 3 - Documentation of augmentation of Clozapine. 4 - Justification other than those listed in allowable values 1-3, document here : Discharge Discharge Date: May 07, 2018 Discharge Diagnosis: (1) Antisocial personality traits (2) Bipolar depression Diagnosis: Principal ICD Code: F31.30 - Bipolar disorder, current episode depressed, mild or moderate severity, unspecified (3) Cocaine abuse Diagnosis: Secondary ICD Code: F14.10 - Cocaine abuse, uncomplicated Pt Condition on Discharge: Stable Discharge Disposition: Discharge Home Discharge Instructions Diet Instructions: As Tolerated, No Restrictions Activities you can perform: Regular-No Restrictions Scheduled Appointment: Private Psychiatrist (Dr. Bower) Discharge Time > 30 minutes Mental Status Examination Appearance: Appropriate Consciousness: Alert Orientation: x4 Motor Activity: Normal gait Speech: Unremarkable Language: Adequate Fund of Knowledge: Adequate Attention and Concentration: Adequate Memory: Unremarkable Mood: Sad Affect: Other (Slight increased range and intensity) Thought Process & Associations: Intact Thought Content: Appropriate Hallucination Type: None Delusion Type: Other (Somewhat vigilant) Suicidal Ideation: No (Denies at this time) Suicidal Plan: No Suicidal Intention: No Homicidal Ideation: No Homicidal Plan: No Homicidal Intention: No Insight: Poor Judgment: Poor Discharge/Advance Care Plan Health Problems: (1) Bipolar depression (2) Cocaine abuse Goals to promote your health * To prevent worsening of your condition and complications * To maintain your health at the optimal level Directions to meet your goals Take your medications as prescribed Follow your dietary instruction Follow activity as directed Keep your appointments as scheduled Take your immunizations and boosters as scheduled If your symptoms worsen call your PCP, if no PCP go to Urgent Care Center or Emergency Room For 12/06 questions related to your inpatient stay or results of tests pending at discharge, please contact Dr. Jose F Silverio at Smoking is Dangerous to Your Health. Avoid second hand smoking Jose F Silverio MD May 07, 2018 09:46
[2018-05-07] MEDS ORDERED: REMOVE OLD LIDOCAINE PATCH T-DERMAL SCH (21:00)
== END 2018-05-07 15:45 | disposition home or self-care (01) | DRG 885 ==
LOC: H4EA 13:16
PROVIDERS: ADMIT Psychiatry & Neurology Psychiatry; ATTEND Psychiatry & Neurology Psychiatry
DX: F31.31 Bipolar disorder, current episode depressed, mild (principal); M62.82 Rhabdomyolysis; R45.851 Suicidal ideations; F11.23 Opioid dependence with withdrawal; F14.10 Cocaine abuse, uncomplicated; F41.9 Anxiety disorder, unspecified; R07.9 Chest pain, unspecified; M25.512 Pain in left shoulder; W18.30XA Fall on same level, unspecified, initial encounter; F60.2 Antisocial personality disorder; G89.29 Other chronic pain; Z59.0 Homelessness
CPT/HCPCS: 73030; 76937; 80048; 80053; 80061; 82550; 82552; 83036; 85025; 87070; 87205; J2060; J7030